=== PATIENT | male | born 2000 | race Two or more races ===

== ENCOUNTER 2021-11-03 17:32 | Emergency (ER) | payer MEDICAID, OTHER ==
[~2021-11-03] VITALS: Ht 175.3 cm; Wt 95.3 kg
[~2021-11-03 17:32] MED LIST: SODIUM CHLORIDE 0.9% 1,000 ML IV ONE
[2021-11-03] MEDS ORDERED: ONDANSETRON HCL 4 MG/2 ML VIAL ONE (17:36)
[2021-11-03] MEDS ORDERED: NALOXONE HCL 1MG/ML 2ML SYRINGE IV ONE (18:00)
[2021-11-03] MEDS ORDERED: ONDANSETRON HCL 4 MG/2 ML VIAL IV ONE (18:00)
[2021-11-03 18:12] LABS: Basophils # (auto) 0.3 10 ^3/uL (0-0.2); Basophils % (auto) 2.4 % (0.0-2.0); Eosinophils # (auto) 0.1 10 ^3/uL (0-0.8); Eosinophils % (auto) 1.3 % (0.0-7.0); Hematocrit 42.2 % (41.0-53.0); Hemoglobin 14.6 g/dL (13.5-17.5); Lymphocytes # (auto) 5.4 10 ^3/uL (0.4-5.4); Lymphocytes % (auto) 50.3 % (10.0-50.0); Mean Corpuscular Hgb Conc. 34.6 g/dL (32.0-36.0); Mean Corpuscular Volume 86.8 fL (80.0-100.0); Monocytes # (auto) 0.8 10 ^3/uL (0-1.3); Monocytes % (auto) 7.8 % (0.0-12.0); Neutrophils # (auto) 4.1 10 ^3/uL (1.6-8.6); Neutrophils % (auto) 38.2 % (37.0-80.0); Nucleated Red Blood Cells % 0.2 %; Red Blood Cells 4.86 10^6/uL (4.5-5.90); Red Cell Distribution Width 12.9 % (11.8-14.3); White Blood Cell 10.6 10^3/uL (4.4-10.8)
[2021-11-03 18:26] LABS: Albumin 3.8 g/dL (3.4-5.0); Calcium 8.1 mg/dL (8.5-10.1); Magnesium 2.7 mg/dL (1.6-2.6); Potassium 3.5 mmol/L (3.5-5.1)
[2021-11-03 18:30] LABS: BUN/Creatinine Ratio 6.7; Bilirubin, Total 0.6 mg/dL (0.2-1.0); Total Protein 7.3 g/dL (6.4-8.2)
[2021-11-03 19:29] LABS: Alcohol, Urine < 3.0 mg/dL (0-10); Amphetamine Screen, Urine NEGATIVE (NEGATIVE); Barbiturate Scree,Urine NEGATIVE (NEGATIVE); Benzodiazephine Screen, Urine POSITIVE (NEGATIVE); Cannabinoid Screen, Urine POSITIVE (NEGATIVE); Cocaine Screen, Urine POSITIVE (NEGATIVE); Opiate Scree,Urine NEGATIVE (NEGATIVE); Phencyclidine Screen, Urine NEGATIVE (NEGATIVE)
[2021-11-03 19:35] VITALS: BP 102/66
== END 2021-11-03 20:21 | disposition left against medical advice (07) ==
LOC: ER 17:32
DX: R41.82 Altered mental status, unspecified (principal); F19.10 Other psychoactive substance abuse, uncomplicated
CPT/HCPCS: 36415; 71045; 80053; 80307; 80320; 83735; 85025; 96374; 96375; 99284; J2405

== ENCOUNTER 2024-09-26 11:13 | Inpatient (IN) | payer MEDICAID ==
[~2024-09-26] VITALS: Ht 165.1 cm; Wt 75.5 kg
[2024-09-26] MEDS: SODIUM CHLORIDE 0.9% 1,000 ML IVB ONE (11:45)
--- NOTE | 2024-09-26 11:48 | ED.PDOC ---
GI ASSESSMENT HPI Comments 23 year old male presents to the ED with chief complaint of abdominal pain. Patient reports that he has been experiencing RLQ sharp, 6/10 abdominal pain with associated radiation to the back and right groin along with nausea and vomiting for the past 2 days. Patient relays that movement worsens his pain. Patient denies any fever, chills, hematemesis, melena, or diarrhea. Chief Complaint: Abdominal Pain Time Seen by MD: 11:46 Primary Care Provider: NONE Reviewed Notes: Nurses Notes, Medications, Allergies Allergies: Coded Allergies: NO KNOWN ALLERGIES (Unverified , 11/03/21) Information Source: Patient Mode of Arrival: Ambulatory Timing: Days Duration: Since onset Prehospital treatment: None Quality: Sharp Vomitus: Watery Stool: Normal Severity: Moderate Recent: None Recent Hx of: None Pain Location: RLQ Modifying Factors: Nothing Associated sign and symptoms: Nausea, Vomiting, Abdominal Pain Past Medical History PAST MEDICAL HISTORY: Denies Surgical History: Denies all surgeries Family History Family History: Reviewed,noncontributory to illness Social History Smoker: Cigarettes Alcohol: Occasionally Drugs: Marijuana Lives In: Home Constitutional: denies: chills, diaphoresis, fatigue, fever, malaise, sweats, weakness, others EENTM: denies: blurred vision, double vision, ear bleeding, ear discharge, ear drainage, ear pain, ear ringing, eye pain, eye redness, hearing loss, mouth pain, mouth swelling, nasal discharge, nose bleeding, nose congestion, nose pain, photophobia, tearing, throat pain, throat swelling, voice changes, others Respiratory: denies: cough, hemoptysis, orthopnea, SOB at rest, shortness of breath, SOB with excertion, stridor, wheezing, others Cardiovascular: denies: chest pain, dizzy spells, diaphoresis, Dyspnea on exertion, edema, irregular heart beat, left arm pain, lightheadedness, palpitations, PND, syncope, others Gastrointestinal: reports: abdominal pain, nausea, vomiting; denies: abdomen distended, blood streaked bowels, constipated, diarrhea, dysphagia, difficulty swallowing, hematemesis, melena, poor appetite, poor fluid intake, rectal bleeding, rectal pain, others Genitourinary: reports: testicle pain; denies: burning, dysuria, flank pain, frequency, hematuria, incontinence, penile discharge, penile sore, pain, testicle swelling, urgency, others Neurological: denies: dizziness, fainting, headache, left sided numbness, left sided weakness, numbness, paresthesia, pre-existing deficit, right sided numbness, right sided weakness, seizure, speech problems, tingling, tremors, weakness, others Musculoskeletal: reports: back pain; denies: gout, joint pain, joint swelling, muscle pain, muscle stiffness, neck pain, others Integumetry: denies: bruises, change in color, change in hair/nails, dryness, laceration, lesions, lumps, rash, wounds, others Allergic/Immunocompromised: denies: Difficulty Healing, Frequent Infections, Hives, Itching, others Hematologic/Lymphatic: denies: anemia, blood clots, easy bleeding, easy bruising, swollen glands, others Endocrine: denies: excessive hunger, excessive sweating, excessive thirst, excessive urination, flushing, intolerance to cold, intolerance to heat, unexplained weight gain, unexplained weight loss, others Psychiatric: denies: anxiety, bipolar disorder, depression, hopeless, panic disorder, schizophrenia, sleepless, suicidal, others All Other Systems: Reviewed and Negative Physical Exam General Appearance: Moderate Distress HEENT: Normal ENT Inspection, Pharynx Normal, TMs Normal Neck: Full Range of Motion, Non-Tender, Normal, Normal Inspection Respiratory: Chest Non-Tender, Lungs Clear, No Accessory Muscle Use, No Respiratory Distress, Normal Breath Sounds Cardiovascular: No Edema, No JVD, No Murmur, No Gallop, Normal Peripheral Pulses, Regular Rate/Rhythm Breast Exam: Deferred Gastrointestinal: No Organomegaly, No Pulsatile Mass, Normal Bowel Sounds, RLQ, Soft, Tenderness Genitalia: Deferred Pelvic: Deferred Rectal: Deferred Extremities: No calf tenderness, Normal capillary refill, Normal inspection, Normal range of motion, Non-tender, No pedal edema Musculoskeletal : Apperance: Normal Neurologic: Alert, automatic pilot mechanic II-XII nml as Tested, No Motor Deficits, Normal Affect, Normal Mood, No Sensory Deficits Cerebellar Function: Normal Reflexes: Normal Skin: Dry, Normal Color, Warm Lymphatic: No Adenopathy Was a procedure done? Was a procedure done?: No GI differential Dx Differential Diagnosis: Appendicitis, Gastritis/PUD, Gastroenteritis, Pancreatitis, UTI, Electrolyte Imbalance, Food Poisoning X-Ray, Labs, Meds, VS Vital Signs Date Time Temp Pulse Resp B/P (MAP) Pulse Ox O2 Delivery O2 Flow Rate FiO2 09/26/24 13:12 106 14 98 Room Air* 0 21 09/26/24 13:11 98.0 106 14 137/60 (85) 98 98.0 09/26/24 13:11 106 14 137/60 09/26/24 11:42 98.3 105 16 129/63 (85) 96 Lab Test 09/26/24 13:38 09/26/24 11:57 09/26/24 11:39 Range/Units Prothrombin Time Pending Prothrombin Time INR Pending Activated Partial Thromboplast Time Pending White Blood Count 13.3 H 4.4-10.8 10^3/uL Red Blood Count 4.64 4.5-5.90 10^6/uL Hemoglobin 14.8 13.5-17.5 g/dL Hematocrit 42.2 41.0-53.0 % Mean Corpuscular Volume 90.9 80.0-100.0 fL Mean Corpuscular Hemoglobin 32.0 28.0-32.0 pg Mean Corpuscular Hemoglobin Concent 35.1 32.0-36.0 g/dL Red Cell Distribution Width 15.0 H 11.8-14.3 % Platelet Count 312 140-450 10^3/uL Mean Platelet Volume 8.6 6.9-10.8 fL Neutrophils (%) (Auto) 75.9 37.0-80.0 % Lymphocytes (%) (Auto) 15.7 10.0-50.0 % Monocytes (%) (Auto) 8.1 0.0-12.0 % Eosinophils (%) (Auto) 0.2 0.0-7.0 % Basophils (%) (Auto) 0.1 0.0-2.0 % Neutrophils # (Auto) 10.1 H 1.6-8.6 10 ^3/uL Lymphocytes # (Auto) 2.1 0.4-5.4 10 ^3/uL Monocytes # (Auto) 1.1 0-1.3 10 ^3/uL Eosinophils # (Auto) 0 0-0.8 10 ^3/uL Basophils # (Auto) 0 0-0.2 10 ^3/uL Nucleated Red Blood Cells 0.0 % Sodium Level 130 L 136-145 mmol/L Potassium Level 4.0 3.5-5.1 mmol/L Chloride Level 96 L 98-107 mmol/L Carbon Dioxide Level 23 20-31 mmol/L Anion Gap 11 5-15 Blood Urea Nitrogen 15 9-23 mg/dL Creatinine 0.88 0.700-1.30 mg/dL Glomerular Filtration Rate Calc 125 >90 mL/min BUN/Creatinine Ratio 17.0 10.0-20.0 Serum Glucose 111 H 74-106 mg/dL Calcium Level 10.5 H 8.7-10.4 mg/dL Total Bilirubin 2.1 H 0.2-1.0 mg/dL Aspartate Amino Transferase (AST) 28 13-40 U/L Alanine Aminotransferase (ALT) 21 7-40 U/L Alkaline Phosphatase 86 46-116 U/L Total Protein 8.3 H 5.7-8.2 g/dL Albumin 5.3 H 3.2-4.8 g/dL Urine Color [place] H Yellow Urine Clarity Clear Clear Urine pH 6.0 5.0-9.0 Urine Specific [place] 1.045 H 1.001-1.035 Urine Protein 1+ H Negative Urine Ketones 2+ H Negative Urine Blood 1+ H Negative /uL Urine Nitrite Negative Negative Urine Bilirubin 1+ Negative Urine Urobilinogen 8 H Negative mg/dL Urine Leukocyte Esterase Negative Negative /uL Urine RBC 2 0 - 3 /hpf Urine Microscopic WBC 5 H 0-3 /HPF Urine Squamous Epithelial Cells Few <5 /hpf Urine Bacteria None seen None Seen /hpf Urine Mucus Few None Seen Urine Glucose Normal Normal mg/dL Current Medications Medications (Trade) Dose Ordered Sig/Todd Route Start Time Stop Time Status Last Admin Ondansetron HCl (Zofran) 4 mg ONCE ONCE IV 09/26/24 11:45 09/26/24 11:46 DC 09/26/24 13:08 Sodium Chloride 1,000 ml @ 1,000 mls/hr Q1H ONCE IVB 09/26/24 11:45 09/26/24 12:44 DC 09/26/24 11:45 Morphine Sulfate 4 mg ONCE ONCE IV 09/26/24 11:45 09/26/24 11:46 DC 09/26/24 13:11 Piperacillin Sod/ Tazobactam Sod 100 ml @ 100 mls/hr ONCE ONCE IV 09/26/24 13:15 09/26/24 14:14 09/26/24 13:24 CT Abd/Pel indicates: 1. Acute appendicitis. No evidence of rupture. No abscess formation. Surgical evaluation is recommended. Critical Result: Acute appendicitis Findings discussed with AZEB ELLSWORTH at 09/26/2024 12:29 PM, and acknowledged receipt and understanding of the findings. IV Hep-Lock was established The patient was given a 1 L bolus of normal saline Because of the appendicitis, the patient was started on Zosyn IV piggyback. The patient was given morphine 4 mg IV push for the pain The patient was given Zofran 4 mg IV push for the nausea CBC is elevated with a white blood cell count of 13.3 We did speak with Dr. Mccabe who is the surgeon on-call. He will be consulting on the patient. The patient was to remain NPO and has been placed on the surgical list Images Reviewed?: Images reviewed and evaluated by me Time of 1ST Reevaluation: 13:51 Reevaluation 1ST: Unchanged Patient Education/Counseling: Diagnosis, Treatment, Prognosis Family Education/Counseling: No Family Present Additional Information - I reviewed the following notes from patient's past medical encounters: 11/03/21 for drug overdose - The following tests were ordered, and results were reviewed by me: (Labs, X- Ray, EKG): UA, CBC, CMP, CT Abd/Pel - Additional information was gathered from interviewing the following independent Historian: (Family, Other Providers, EMT): None - I reviewed and agreed with the following test results read by other provider: (X-ray, CT, US): CT Abd/Pel - I discussed treatments and results with medical personnel. Departure 1 Departure Time of Disposition: 13:51 Impression: Primary Impression: Intractable abdominal pain Additional Impression: Acute appendicitis Qualified Codes: K35.80 - Unspecified acute appendicitis Disposition: ADMITTED INPATIENT Admit to: Med Surg Condition: Fair Critical Care Note Critical Care Time?: No Stability Stability form required: Yes Unstable for transfer: ED Physician Assesment (Clinical assesment) Heart Score Heart Score: Heart Score Response (Comments) Value History N/A 0 EKG N/A 0 Age N/A 0 Risk Factors N/A 0 Troponin N/A 0 Total 0 I personally scribed for AZEB ELLSWORTH MD ([email or web address]) on 09/26/24 at 11:48. Electronically submitted by Enio Emerson ([email or web address]). I personally scribed for AZEB ELLSWORTH MD ([email or web address]) on 09/26/24 at 12:48. Electronically submitted by Enio Emerson ([email or web address]). I personally scribed for AZEB ELLSWORTH MD ([email or web address]) on 09/26/24 at 12:48. Electronically submitted by Enio Emerson ([email or web address]). AZEB ELLSWORTH MD Sep 26, 2024 11:48
[2024-09-26 12:25] LABS: Urine Bacteria None Seen /hpf (None Seen)
[2024-09-26 12:34] LABS: Alanine Aminotransferase 21 U/L (7-40); Alkaline Phosphatase 86 U/L (46-116); Anion Gap 11 (5-15); Aspartate Aminotransferase 28 U/L (13-40); Blood Urea Nitrogen 15 mg/dL (9-23); Carbon Dioxide 23 mmol/L (20-31)
--- NOTE | 2024-09-26 12:35 | DVH ---
Exam: CT CT AB PEL WO CON-NO ORAL OR IV History: lower abd pain Comparison Study: None Technique: Multidetector spiral CT of the abdomen and pelvis was performed from lung bases to pubic symphysis. Imaging was performed without IV contrast. Axial, coronal and sagittal multiplanar reform ats were obtained from the axial data set by the technologist. Radiation dose : Abdomen/Pelvis: CTDIvol 5 mGy, DLP 311.74 mGy*cm. Findings: Evaluation of solid organs is limited due to lack of intravenous contrast use. Lung Bases: No acute or significant lung base finding. Normal heart size. No pleural or pericardial effusion. Liver: The liver is normal in size. No focal lesions. Gallbladder and biliary Tree: Unremarkable Spleen: Unremarkable Pancreas: The pancreas is grossly normal in appearance. Adrenal Glands: Unremarkable Kidneys: Kidneys are grossly normal without calculi or hydronephrosis. Bladder: Grossly unremarkable for degree of distention. Bowel: The stomach is grossly normal in appearance. Small bowel and colon are normal in caliber and d istribution. Appendix is dilated. There is significant stranding in the right lower quadrant. No loc ulated abscess. Ascites: Absent Lymphadenopathy: No mesenteric, retroperitoneal or periportal lymphadenopathy. Abdominal wall and Mesentery: Unremarkable. Vasculature: The visualized abdominal aorta is normal in size and caliber. Evaluation of abdominal a nd pelvic vessels is limited due to lack of intravenous contrast. Pelvic Organs: Unremarkable Musculoskeletal: No aggressive focal bony lesions, acute fractures or dislocation. IMPRESSION: 1. Acute appendicitis. No evidence of rupture. No abscess formation. Surgical evaluation is recommend ed. Critical Result: Acute appendicitis Findings discussed with AZEB ELLSWORTH at 09/26/2024 12:29 PM, and acknowledged receipt and understand ing of the findings. .. Radiation optimization: All CT scans at this facility use at least one of these dose optimization erendira hniques: Automated exposure control mA and/or kV adjustment per patient size (includes targeted exams where dose is matched to clinical indication) or iterative reconstruction. HS:Y
[2024-09-26 12:37] LABS: Albumin 5.3 g/dL (3.2-4.8); Bilirubin, Total 2.1 mg/dL (0.2-1.0); Calcium 10.5 mg/dL (8.7-10.4); Chloride 96 mmol/L (98-107); Glucose 111 mg/dL (74-106); Sodium 130 mmol/L (136-145); Total Protein 8.3 g/dL (5.7-8.2)
[2024-09-26 12:50] LABS: Basophils # (auto) 0 10 ^3/uL (0-0.2); Basophils % (auto) 0.1 % (0.0-2.0); Eosinophils # (auto) 0 10 ^3/uL (0-0.8); Eosinophils % (auto) 0.2 % (0.0-7.0); Hematocrit 42.2 % (41.0-53.0); Hemoglobin 14.8 g/dL (13.5-17.5); Lymphocytes # (auto) 2.1 10 ^3/uL (0.4-5.4); Lymphocytes % (auto) 15.7 % (10.0-50.0); Mean Corpuscular Hgb Conc. 35.1 g/dL (32.0-36.0); Mean Corpuscular Volume 90.9 fL (80.0-100.0); Monocytes # (auto) 1.1 10 ^3/uL (0-1.3); Monocytes % (auto) 8.1 % (0.0-12.0); Neutrophils # (auto) 10.1 10 ^3/uL (1.6-8.6); Neutrophils % (auto) 75.9 % (37.0-80.0); Platelet Count (auto) 312 10^3/uL (140-450); Red Blood Cells 4.64 10^6/uL (4.5-5.90); White Blood Cell 13.3 10^3/uL (4.4-10.8)
[2024-09-26] MEDS: ONDANSETRON HCL 4 MG/2 ML VIAL IV ONE (13:08)
[2024-09-26] MEDS: MORPHINE SULFATE 4 MG/ML SYR/VIAL IV ONE (13:11)
[2024-09-26 13:12] VITALS: PULSE 106; RESP 14; O2SAT 98
[2024-09-26 13:18] LABS: Urine Blood 1+ /uL (Negative); Urine Clarity Clear (Clear); Urine Color Orange (Yellow); Urine Mucus FEW (None Seen); Urine Protein, UAD 1+ (Negative); Urine Specific Gravity 1.045 (1.001-1.035); Urine Squamous Epithelial Cell FEW /hpf (<5); Urine Urobilinogen 8 mg/dL (Negative); Urine WBC 5 /HPF (0-3)
[2024-09-26] MEDS: PIPERACILLIN-TAZOB 3.375GM 100 ML IV ONE (13:24)
[2024-09-26 14:32] LABS: Partial Thromboplastin Time 30.9 SEC (24.5-34.5); Prothrombin Time 10.6 sec (9.3-11.8)
[2024-09-26] MEDS: HYDROcodone-ACET 10/325MG TAB PO ONE (17:11)
--- NOTE | 2024-09-26 17:43 | DVHINCON2 ---
Date of service: Sep 26, 2024 Allergies: Coded Allergies: NO KNOWN ALLERGIES (Unverified , 11/03/21) Vital Signs Vital Signs Date Time Temp Pulse Resp B/P (MAP) Pulse Ox O2 Delivery O2 Flow Rate FiO2 09/26/24 14:42 82 12 96/61 09/26/24 13:12 98 Room Air* 0 21 09/26/24 13:11 98.0 98.0 Labs/Diagnostic Data Labs Test 09/26/24 13:38 09/26/24 11:57 09/26/24 11:39 Range/Units Prothrombin Time 10.6 9.3-11.8 sec Prothrombin Time INR 1.00 0.9-1.15 Activated Partial Thromboplast Time 30.9 24.5-34.5 SEC White Blood Count 13.3 H 4.4-10.8 10^3/uL Red Blood Count 4.64 4.5-5.90 10^6/uL Hemoglobin 14.8 13.5-17.5 g/dL Hematocrit 42.2 41.0-53.0 % Mean Corpuscular Volume 90.9 80.0-100.0 fL Mean Corpuscular Hemoglobin 32.0 28.0-32.0 pg Mean Corpuscular Hemoglobin Concent 35.1 32.0-36.0 g/dL Red Cell Distribution Width 15.0 H 11.8-14.3 % Platelet Count 312 140-450 10^3/uL Mean Platelet Volume 8.6 6.9-10.8 fL Neutrophils (%) (Auto) 75.9 37.0-80.0 % Lymphocytes (%) (Auto) 15.7 10.0-50.0 % Monocytes (%) (Auto) 8.1 0.0-12.0 % Eosinophils (%) (Auto) 0.2 0.0-7.0 % Basophils (%) (Auto) 0.1 0.0-2.0 % Neutrophils # (Auto) 10.1 H 1.6-8.6 10 ^3/uL Lymphocytes # (Auto) 2.1 0.4-5.4 10 ^3/uL Monocytes # (Auto) 1.1 0-1.3 10 ^3/uL Eosinophils # (Auto) 0 0-0.8 10 ^3/uL Basophils # (Auto) 0 0-0.2 10 ^3/uL Nucleated Red Blood Cells 0.0 % Sodium Level 130 L 136-145 mmol/L Potassium Level 4.0 3.5-5.1 mmol/L Chloride Level 96 L 98-107 mmol/L Carbon Dioxide Level 23 20-31 mmol/L Anion Gap 11 5-15 Blood Urea Nitrogen 15 9-23 mg/dL Creatinine 0.88 0.700-1.30 mg/dL Glomerular Filtration Rate Calc 125 >90 mL/min BUN/Creatinine Ratio 17.0 10.0-20.0 Serum Glucose 111 H 74-106 mg/dL Calcium Level 10.5 H 8.7-10.4 mg/dL Total Bilirubin 2.1 H 0.2-1.0 mg/dL Aspartate Amino Transferase (AST) 28 13-40 U/L Alanine Aminotransferase (ALT) 21 7-40 U/L Alkaline Phosphatase 86 46-116 U/L Total Protein 8.3 H 5.7-8.2 g/dL Albumin 5.3 H 3.2-4.8 g/dL Urine Color [place] H Yellow Urine Clarity Clear Clear Urine pH 6.0 5.0-9.0 Urine Specific [place] 1.045 H 1.001-1.035 Urine Protein 1+ H Negative Urine Ketones 2+ H Negative Urine Blood 1+ H Negative /uL Urine Nitrite Negative Negative Urine Bilirubin 1+ Negative Urine Urobilinogen 8 H Negative mg/dL Urine Leukocyte Esterase Negative Negative /uL Urine RBC 2 0 - 3 /hpf Urine Microscopic WBC 5 H 0-3 /HPF Urine Squamous Epithelial Cells Few <5 /hpf Urine Bacteria None seen None Seen /hpf Urine Mucus Few None Seen Urine Glucose Normal Normal mg/dL Assessment [id number] AC APPENDICITIS LAP/OPEN APPENDECTOMY Plan discussed with: Patient LAUREN STEINER MD Sep 26, 2024 17:43
[2024-09-26] MEDS ORDERED: ROCURONIUM 10MG/ML 10ML VIAL IV ONE (19:13)
[2024-09-26] MEDS ORDERED: KETOROLAC TROMETH 30 MG/ML 1ML VIAL ONE (19:13)
[2024-09-26] MEDS ORDERED: LIDOCAINE 1% INJ PF 5ML AMP ONE (19:13)
[2024-09-26] MEDS ORDERED: PROPOFOL 10 MG/ML 20 ML IV ONE (19:13)
[2024-09-26] MEDS ORDERED: HYDROmorphone HCL 2 MG/ML VL/or syr ONE (19:14)
[2024-09-26] MEDS ORDERED: METOCLOPRAMIDE HCL 5MG/ml INJ 2ml VIAL ONE (19:14)
[2024-09-26] MEDS ORDERED: SUGAMMADEX 200mg/2ml Vial (100MG/ML) IV ONE (19:14)
[2024-09-26] MEDS ORDERED: ONDANSETRON HCL 4 MG/2 ML VIAL ONE (19:14)
[2024-09-26] MEDS: BUPIVACAINE 0.25% INJ 50ML VIAL ONE (19:17)
[2024-09-26] MEDS ORDERED: MORPHINE SULFATE INJ 2 MG/ml SYRG IV PRN (19:30)
[2024-09-26] MEDS ORDERED: NITROGLYCERIN 0.4 MG SL TAB SL PRN (19:30)
--- NOTE | 2024-09-26 20:02 | DVHOP2 ---
Operative Report [id number] AC APPENDICITIS DENSE ADHESIONS INTRAABD ABSCESS DRAINAGE OF INTRAABD ABSCESS LAP ESPINOZA LAP APPENDECTOMY EBL 25 CC ON DRAIN NO COMPLICATIONS LAUREN STEINER MD Sep 26, 2024 20:02
[2024-09-26 20:04] VITALS: PULSE 78; RESP 16; O2SAT 100
[2024-09-26 20:15] VITALS: PULSE 87; RESP 14; O2SAT 98
[2024-09-26] MEDS ORDERED: ONDANSETRON HCL 4 MG/2 ML VIAL IV ONE (20:15)
[2024-09-26] MEDS: MORPHINE SULFATE 4 MG/ML SYR/VIAL IV PRN (20:23)
[2024-09-26] MEDS: HYDROmorphone HCL 2 MG/ML VL/or syr IV PRN (21:29)
[2024-09-26 21:49] VITALS: PULSE 84; RESP 18; O2SAT 95
[2024-09-26] MEDS ORDERED: ONDANSETRON ODT 4 MG TAB PO ONE (22:15)
--- NOTE | 2024-09-26 22:56 | DVHHPRES ---
History of Present Illness Resident Creating Document: WEI CASTRO RESDIENT History of Present Illness This is a 23-year-old male with past history of anxiety came to the hospital due to abdominal pain since 2 days. He had a sharp constant pain localized at left lower quadrant radiating to the right groin and the, 8/10 which was worsening with mobility and changing position. Also reports nausea, vomiting, fever and decreased oral intake. He denies cough, shortness with, or any recent bladder habit changes. CT scan finding was consistent with appendicitis, which subsequently underwent laparoscopy appendectomy, and drained the intra-abdominal abscess. PMHx: Anxiety PSHx: Insignificant Social history: Homeless, smokes weeds, denies any other drug Home medication: Take no meds Allergic history: No known allergies Patient was seen and examined at the bedside after surgery, complaining of abdominal pain 6/10, no nausea and vomiting. Surgical site was clean, with no redness/induration/discharge or any other sign of infection. Draining tube was inside, with serosanguineous drainage. Review of Systems Review of Systems General: Reports fever and generalized body pain HEENT: No headaches, visiual changes, hearing loss, tinnitus, nasal congestion and discharge, and sore throat. Cardiovascular: Denies chest pain, palpitations, dyspnea on exertion, orthopnea, or claudication. Respiratory: No cough, and wheezing. Gastrointestinal: Reports abdominal pain, nausea and vomiting Genitourinary: No dysuria, hematuria, discharge, frequency, urgency, nocturia, incontinence, and urinary retention. Endocrine: No heat or cold intolerance, polydipsia, polyuria, and polyphagia. Neurological: No dizziness, extremity weakness and numbness, tremors, gait dist urbance, seizures, and memory impairment. Psychiatric: Denies depression, anxiety,or insomnia. Musculoskeletal: Denies neck pain, stiffness and swelling, back pain, muscle weakness, joint pain, stiffness, swelling, or limited range of motion. Skin: No rashes, itching, skin lesion, changes in hair, nail, skin texture and breast. Hematologic/Lymphatic: Denies easy bruising, bleeding tendencies, or lymph node enlargement. Allergies: Coded Allergies: NO KNOWN ALLERGIES (Unverified , 11/03/21) Medications Current Medications Medications Dose Ordered Sig/Todd Route Start Time Stop Time Status Last Admin Dose Admin Nitroglycerin 0.4 mg Q5MINP PRN SL 09/26/24 19:30 Morphine Sulfate 2 mg Q30M PRN IV 09/26/24 19:30 Exam Vital Signs Vital Signs Date Time Temp Pulse Resp B/P (MAP) Pulse Ox O2 Delivery O2 Flow Rate FiO2 09/26/24 21:20 82 16 102/51 (68) 98 09/26/24 20:15 Room Air 09/26/24 20:04 98.1 98.1 09/26/24 20:04 10.0 09/26/24 20:04 100 Exam General Appearance: Alert, Oriented X3, Cooperative, No acute distress HEENT: Atraumatic, PERRLA, EOMI, Mucous membrane moist/pink Respiratory: Clear to auscultation, Normal air movement Cardiovascular: Regular rate, Normal S1, Normal S2, No murmurs, no chest wall tenderness Abdominal: Surgical site was clean, with no redness/induration/discharge or any other sign of infection. Draining tube was inside, with serosanguineous drainage. Mild tenderness on palpation. Drainage of intra-abdominal abscess with laparoscopic lysis of adhesions and laparoscopic appendectomy. Extremities: No clubbing, No cyanosis, No edema, Normal pulses, No tenderness/swelling Skin: No rashes, No breakdown, No significant lesion Neuro: Normal gait, Normal speech, Strength at 5/5 X4 ext, Normal tone, Sensation intact, Cranial nerves 3-12 NL, Reflexes 2+ Psych/Mental Status: Mental status NL, Mood NL Labs/Xrays Labs Test 09/26/24 13:38 09/26/24 11:57 09/26/24 11:39 Range/Units Prothrombin Time 10.6 9.3-11.8 sec Prothrombin Time INR 1.00 0.9-1.15 Activated Partial Thromboplast Time 30.9 24.5-34.5 SEC White Blood Count 13.3 H 4.4-10.8 10^3/uL Red Blood Count 4.64 4.5-5.90 10^6/uL Hemoglobin 14.8 13.5-17.5 g/dL Hematocrit 42.2 41.0-53.0 % Mean Corpuscular Volume 90.9 80.0-100.0 fL Mean Corpuscular Hemoglobin 32.0 28.0-32.0 pg Mean Corpuscular Hemoglobin Concent 35.1 32.0-36.0 g/dL Red Cell Distribution Width 15.0 H 11.8-14.3 % Platelet Count 312 140-450 10^3/uL Mean Platelet Volume 8.6 6.9-10.8 fL Neutrophils (%) (Auto) 75.9 37.0-80.0 % Lymphocytes (%) (Auto) 15.7 10.0-50.0 % Monocytes (%) (Auto) 8.1 0.0-12.0 % Eosinophils (%) (Auto) 0.2 0.0-7.0 % Basophils (%) (Auto) 0.1 0.0-2.0 % Neutrophils # (Auto) 10.1 H 1.6-8.6 10 ^3/uL Lymphocytes # (Auto) 2.1 0.4-5.4 10 ^3/uL Monocytes # (Auto) 1.1 0-1.3 10 ^3/uL Eosinophils # (Auto) 0 0-0.8 10 ^3/uL Basophils # (Auto) 0 0-0.2 10 ^3/uL Nucleated Red Blood Cells 0.0 % Sodium Level 130 L 136-145 mmol/L Potassium Level 4.0 3.5-5.1 mmol/L Chloride Level 96 L 98-107 mmol/L Carbon Dioxide Level 23 20-31 mmol/L Anion Gap 11 5-15 Blood Urea Nitrogen 15 9-23 mg/dL Creatinine 0.88 0.700-1.30 mg/dL Glomerular Filtration Rate Calc 125 >90 mL/min BUN/Creatinine Ratio 17.0 10.0-20.0 Serum Glucose 111 H 74-106 mg/dL Calcium Level 10.5 H 8.7-10.4 mg/dL Total Bilirubin 2.1 H 0.2-1.0 mg/dL Aspartate Amino Transferase (AST) 28 13-40 U/L Alanine Aminotransferase (ALT) 21 7-40 U/L Alkaline Phosphatase 86 46-116 U/L Total Protein 8.3 H 5.7-8.2 g/dL Albumin 5.3 H 3.2-4.8 g/dL Urine Color [place] H Yellow Urine Clarity Clear Clear Urine pH 6.0 5.0-9.0 Urine Specific [place] 1.045 H 1.001-1.035 Urine Protein 1+ H Negative Urine Ketones 2+ H Negative Urine Blood 1+ H Negative /uL Urine Nitrite Negative Negative Urine Bilirubin 1+ Negative Urine Urobilinogen 8 H Negative mg/dL Urine Leukocyte Esterase Negative Negative /uL Urine RBC 2 0 - 3 /hpf Urine Microscopic WBC 5 H 0-3 /HPF Urine Squamous Epithelial Cells Few <5 /hpf Urine Bacteria None seen None Seen /hpf Urine Mucus Few None Seen Urine Glucose Normal Normal mg/dL Assessment/Plan Assessment/Plan Acute appendicitis Intra-abdominal abscess CT scan finding consistent with a acute appendicitis Surgery consulted, drained intra-abdominal abscess with laparoscopic lysis of adhesions and laparoscopic appendectomy Postop, surgical site was clean, with no redness/induration/discharge or any other sign of infection. Draining tube was inside, with serosanguineous drainage Ceftriaxone and metronidazole IV fluid History of anxiety Homelessness, director of social media marketing consult DIET: NPO DISPOSITION: Med/surge Patient's status and paln discussed with patient Case discussed with Dr. Marroquin. Plan discussed with: Patient, Other (RN) My Orders Orders - WEI CASTRO RESDIALEJO Procedure Category Date Status Time Communication Order ORDERS 09/26/24 Transmitted 22:32 Date of Service: Sep 27, 2024 Billing Provider: JETT MARROQUIN MD Common Visit Codes: 11333-SEIUIOE INP/OBS CARE (HIGH) WEI CASTRO RESDIENT Sep 26, 2024 22:56 JETT MARROQUIN MD Sep 28, 2024 15:44
[2024-09-27] VITALS (8 sets, daily range): BP systolic 98–129; BP diastolic 46–65; PULSE 86–98; RESP 12–18; TEMP 98–99.7; O2SAT 92–96
--- NOTE | 2024-09-27 00:19 | DVHOP ---
DATE OF SURGERY: 09/26/2024 PREOPERATIVE DIAGNOSIS: Acute appendicitis, was found to have dense adhesions with intra-abdominal abscess. POSTOPERATIVE DIAGNOSIS: Acute appendicitis, was found to have dense adhesions with intra-abdominal abscess. PROCEDURES: Drainage of intra-abdominal abscess with laparoscopic lysis of adhesions and laparoscopic appendectomy. SURGEON: Perfecto Mccabe MD HEATING TECHNICIAN: None. ANESTHESIA: General. ESTIMATED BLOOD LOSS: Close to 25 mL. DRAINS: One drain was used. COMPLICATIONS: No complications were encountered. DESCRIPTION OF PROCEDURE: The patient was prepped and draped in the usual sterile fashion in the supine position and a supraumbilical incision was applied, was taken down to the fascia. The Veress needle was introduced and CO2 insufflation was started to pressure of 15 mmHg. The needle was withdrawn, replaced by the 12-mm trocar and a telescope introduced. The appendix was found to be acutely inflamed and adherent to the omental tissue and could not be easily identified initially and then two 5-mm ports were applied more inferiorly, one above the symphysis, the 3rd midway between the upper two and the patient was placed in Trendelenburg and right upper lateral position. The camera moved to the lowermost 5-mm port, the upper 2 ports were used for surgery and with meticulous dissection, the omental tissue was taken off. The appendix was identified, was acutely inflamed, distended. Intra-abdominal abscess was also found, was drained out and the lysis of adhesions carried out laparoscopically. The base of the appendix was identified. The mesoappendix was clipped at the base, divided distal to that using Harmonic device. The base of the appendix was then transected using the Endo ALFONSO stapling device and the appendix released in this fashion was retrieved from the supraumbilical wound in the EndoCatch bag without any complication. Hemostasis was secured. Irrigation fluid was removed. The port sites were free from bleeding. A size #19 Chente drainage tube was placed to drain the right lower quadrant and the pelvis, bringing out from the lowermost 5-mm port. After that, one port had been withdrawn, securing the drain with a silk suture. After this, the CO2 was let out. The patient was placed back supine and the EndoClose suture used for the fascial closure of the supraumbilical wound. All the ports were withdrawn after all the CO2 been let out and the patient was placed back supine. The wounds were then brought together using 3-0 Monocryl suture in a subcuticular fashion. Surgical glue was applied. The patient tolerated the procedure well and was taken back to the recovery room in a stable condition. MD SHAREE Yancey/ANAMIKA/ELSY TID: [id number] RECEIPT: [id number] cc: Candido Calhoun MD
[2024-09-27] MEDS: ONDANSETRON HCL 4 MG/2 ML VIAL IM ONE (00:47)
[2024-09-27] MEDS: MORPHINE SULFATE INJ 2 MG/ml SYRG IM ONE (00:53)
[2024-09-27] MEDS: cefTRIAXone 1GM/50ML D5W 50 ML IV ONE (01:15)
[2024-09-27 01:46] LABS: Basophils # (auto) 0 10 ^3/uL (0-0.2); Basophils % (auto) 0.3 % (0.0-2.0); Eosinophils # (auto) 0.1 10 ^3/uL (0-0.8); Eosinophils % (auto) 0.8 % (0.0-7.0); Hematocrit 34.3 % (41.0-53.0); Hemoglobin 12.3 g/dL (13.5-17.5); Lymphocytes # (auto) 1.7 10 ^3/uL (0.4-5.4); Lymphocytes % (auto) 18.3 % (10.0-50.0); Mean Corpuscular Hemoglobin 32.9 pg (28.0-32.0); Mean Corpuscular Hgb Conc. 35.8 g/dL (32.0-36.0); Mean Corpuscular Volume 91.9 fL (80.0-100.0); Monocytes # (auto) 0.8 10 ^3/uL (0-1.3); Monocytes % (auto) 8.1 % (0.0-12.0); Neutrophils # (auto) 6.9 10 ^3/uL (1.6-8.6); Neutrophils % (auto) 72.5 % (37.0-80.0); Platelet Count (auto) 246 10^3/uL (140-450); Red Blood Cells 3.73 10^6/uL (4.5-5.90); Red Cell Distribution Width 15.2 % (11.8-14.3); White Blood Cell 9.6 10^3/uL (4.4-10.8)
[2024-09-27 02:03] LABS: Alanine Aminotransferase 16 U/L (7-40); Alkaline Phosphatase 62 U/L (46-116); Anion Gap 6 (5-15); Aspartate Aminotransferase 15 U/L (13-40); BUN/Creatinine Ratio 14.6 (10.0-20.0); Blood Urea Nitrogen 12 mg/dL (9-23); Calcium 9.4 mg/dL (8.7-10.4); Carbon Dioxide 28 mmol/L (20-31); Chloride 99 mmol/L (98-107); Glucose 95 mg/dL (74-106); Potassium 3.8 mmol/L (3.5-5.1)
[2024-09-27 02:04] LABS: Total Protein 6.3 g/dL (5.7-8.2)
[2024-09-27] MEDS: cefTRIAXone 1GM/50ML D5W 50 ML IV SCH (02:09)
[2024-09-27 02:10] LABS: Bilirubin, Total 1.5 mg/dL (0.2-1.0); Sodium 133 mmol/L (136-145)
[2024-09-27] MEDS: SODIUM CHLORIDE 0.9% 1,000 ML IV ONE (02:11)
[2024-09-27] MEDS: metroNIDAZOLE 500MG/100ML 100 ML IV ONE (02:14)
[2024-09-27] MEDS: ACETAMINOPHEN IV 1000 MG/100ML (10MG/ML) IV ONE (02:28)
--- NOTE | 2024-09-27 07:37 | DVHINCON2 ---
DATE OF CONSULTATION: 09/26/2024 HISTORY OF PRESENT ILLNESS: This patient is 23 years old, coming in with right lower quadrant pain for the past 3 days, got worse today. He came to the Emergency Room. I was asked to see him. No nausea, no vomiting, no constipation or diarrhea, no hematemesis or melena, and no bleeding per rectum. PAST MEDICAL HISTORY: ____ diabetes. Hypertension. PAST SURGICAL HISTORY: No significant surgical history. PHYSICAL EXAMINATION: VITAL SIGNS: On examination afebrile, stable signs. HEENT: No evidence of pallor, cyanosis, or jaundice. NECK: Supple, nontender with no thyromegaly or lymphadenopathy. CHEST AND LUNGS: Clear. HEART: Within normal limits. ABDOMEN: Soft, tender in the right lower quadrant. No evidence of rebound. EXTREMITIES: Unremarkable. NEUROLOGIC: Intact. CLINICAL IMPRESSION: Acute appendicitis, supported by radiology as well. PLAN: The plan will be to consider an emergent laparoscopic, possible open appendectomy. Benefits and risks were discussed, and a consent obtained. MD SHAREE Yancey/CECELIA/REFUGIO/BRIANNA TID: [id number] RECEIPT: [id number] cc: Candido Calhoun MD
[2024-09-27] MEDS: metroNIDAZOLE 500MG/100ML 100 ML IV SCH (09:52)
--- NOTE | 2024-09-27 13:06 | DVHPNRES ---
Progress Note Date Seen: Sep 27, 2024 Resident Creating Document: NATHAN MIX RESIDENT Medical Necessity Reason Pt with a Central, PICC or Fol: No Medical Necessity Reason APPENDICITIS, PERITONITIS, STATUS POST APPENDECTOMY Subjective Review of Systems This is a 23-year-old male with past history of anxiety presented to the ED due to abdominal pain that has been on going for 2 days. He described the pain as sharp, constant pain localized at left lower quadrant radiating to the right groin and rated 8/10 that was progressively with mobility and changing position. He also reports nausea, vomiting, fever and decreased oral intake. He denies cough, shortness with, or any recent bladder habit changes. Initial lab work revealed temperature of 98.3, pulse 105, respiratory 16 blood pressure of 129/63 initial blood work revealed WBC of 13.6--> 9.6 hemoglobin of 14.8 -->12.3. Chemistry shows sodium of 130. CT scan finding was consistent with appendicitis. Surgery was urgently consulted and patient taken into OR for drainage of intra- abdominal abscess with laparoscopic lysis of adhesions and laparoscopic appendectomy. Post operative diagnosis was Acute appendicitis, was dense adhesions with intra-abdominal abscess. Patient seen and examined this morning at the bedside. He was sleeping but easily aroused. He has no severe complaint abdominal pain and he complained of hunger wanted to eat. Incision site no blood or pus leaking. clean and dressed. We will start patient on clear liquid diet and progress gradually as per clinical state. General: Generalized body body pain HEENT: No headaches, visual changes, hearing loss, tinnitus, nasal congestion and discharge, and sore throat. Cardiovascular: Denies chest pain, palpitations, dyspnea on exertion, orthopnea, or claudication. Respiratory: No cough, and wheezing. Gastrointestinal: Reports abdominal pain, nausea and vomiting Genitourinary: No dysuria, hematuria, discharge, frequency, urgency, nocturia, incontinence, and urinary retention. Endocrine: No heat or cold intolerance, polydipsia, polyuria, and polyphagia. Neurological: No dizziness, extremity weakness and numbness, tremors, gait disturbance, seizures, and memory impairment. Psychiatric: Denies depression, anxiety,or insomnia. Musculoskeletal: Denies neck pain, stiffness and swelling, back pain, muscle weakness, joint pain, stiffness, swelling, or limited range of motion. Skin: No rashes, itching, skin lesion, changes in hair, nail, skin texture and breast. Hematologic/Lymphatic: Denies easy bruising, bleeding tendencies, or lymph node enlargement. Objective vital signs Vital Sign Date Time Temp Pulse Resp B/P (MAP) Pulse Ox O2 Delivery O2 Flow Rate FiO2 09/27/24 09:00 98.2 96 18 98/51 (67) 95 98.2 09/26/24 21:49 Room Air* 0 21 Total Intake and Output 09/26/24 09/26/24 09/27/24 15:00 23:00 07:00 Intake Total 1100 ml 50 ml Output Total 500 ml Balance 1100 ml -450 ml medications Current Medications Medications Dose Ordered Sig/Todd Route Start Time Stop Time Status Last Admin Dose Admin Ceftriaxone Sodium 50 ml @ 100 mls/hr Q24H IV 09/27/24 02:00 09/27/24 02:09 100 MLS/HR Metronidazole 100 ml @ 100 mls/hr Q8H IV 09/27/24 10:00 09/27/24 09:52 100 MLS/HR Morphine Sulfate 1 mg Q4HP PRN IV 09/27/24 01:15 Examination General Appearance: Alert, Oriented X3, Cooperative, No acute distress HEENT: Atraumatic, PERRLA, EOMI, Mucous membrane moist/pink Respiratory: Clear to auscultation, Normal air movement Cardiovascular: Regular rate, Normal S1, Normal S2, No murmurs, no chest wall tenderness Abdominal: No distention, no tenderness, bowel sounds present, no scars noted, drainage intact Extremities: No clubbing, No cyanosis, No edema, Normal pulses, No tenderness/swelling Skin: No rashes, No breakdown, No significant lesion, tattoos faces and arm Neuro: Normal gait, Normal speech, Strength at 5/5 X4 ext, Normal tone, Sensation intact, Cranial nerves 3-12 NL, Reflexes 2+ Psych/Mental Status: Mental status NL, Mood NL laboratory and microbiology Laboratory Tests 09/27/24 01:29 Test 09/27/24 01:29 Range/Units Serum Glucose 95 74-106 mg/dL Problem List/Assessment/Plan Problem List/Assessment/Plan Assessment Sepsis due to acute appendicitis peritonitis due intra-abdominal abscess. Acute appendicitis Acute blood loss anemia ( Hgb: 14.8--> 12.3) Hyponatremia Homeless Plan Continue antibiotics: ceftriaxone and metronidazole Monitor H&H closely Monitor and replace electrolyte Consult health and social care teacher for homelessness Morphine 1 mg q4hrs p.r.n. Repeat CBC and CMP in the morning Diet: NPO per Surgeon DVT prophylaxis: young patient, encouraged mobility Code status: FULL Discussed for more than 35 minute Case and plan discussed with Dr. Marino Plan discussed with: Patient Date of Service: Sep 27, 2024 Billing Provider: MARK MARINO MD Common Visit Codes: [id number] INP/OBS CARE(HIGH) NATHAN MIX RESIDENT Sep 27, 2024 13:06 MARK MARINO MD Sep 27, 2024 21:19
--- NOTE | 2024-09-27 14:33 | DVHPN2 ---
Progress Note Date Seen: Sep 27, 2024 Medical Necessity Reason Pt with a Central, PICC or Fol: No Objective vital signs Vital Sign Date Time Temp Pulse Resp B/P (MAP) Pulse Ox O2 Delivery O2 Flow Rate FiO2 09/27/24 13:00 98.5 86 18 129/51 (77) 92 98.5 09/26/24 21:49 Room Air* 0 21 Total Intake and Output 09/26/24 09/26/24 09/27/24 15:00 23:00 07:00 Intake Total 1100 ml 50 ml Output Total 500 ml Balance 1100 ml -450 ml medications Current Medications Medications Dose Ordered Sig/Todd Route Start Time Stop Time Status Last Admin Dose Admin Ceftriaxone Sodium 50 ml @ 100 mls/hr Q24H IV 09/27/24 02:00 09/27/24 02:09 100 MLS/HR Metronidazole 100 ml @ 100 mls/hr Q8H IV 09/27/24 10:00 09/27/24 09:52 100 MLS/HR Morphine Sulfate 1 mg Q4HP PRN IV 09/27/24 01:15 laboratory and microbiology Laboratory Tests 09/27/24 01:29 Test 09/27/24 01:29 Range/Units Serum Glucose 95 74-106 mg/dL Problem List/Assessment/Plan Problem List/Assessment/Plan afebrile VSS ABD SOFT RLQ TENDER DRAIN IN PLACE 30 CC SEROSANGUINEOUS NO BM KEEP NPO IV ABX Plan discussed with: Patient My Orders My Orders Orders - LAUREN STEINER MD Procedure Category Date Status Time Obtain Consent For: ORDERS 09/26/24 Transmitted 17:44 Obtain Consent For VERN 09/26/24 In Process Anesthesia 17:44 LAUREN STEINER MD Sep 27, 2024 14:33
[2024-09-27] MEDS: MORPHINE SULFATE INJ 2 MG/ml SYRG IV PRN (14:58)
[2024-09-28] VITALS (7 sets, daily range): BP systolic 106–122; BP diastolic 63–72; PULSE 82–102; RESP 14–20; TEMP 98.2–99.8; O2SAT 95–98
[2024-09-28 05:38] LABS: Basophils # (auto) 0 10 ^3/uL (0-0.2); Basophils % (auto) 0.2 % (0.0-2.0); Eosinophils # (auto) 0.1 10 ^3/uL (0-0.8); Eosinophils % (auto) 1.1 % (0.0-7.0); Hemoglobin 12.5 g/dL (13.5-17.5); Lymphocytes # (auto) 1.5 10 ^3/uL (0.4-5.4); Lymphocytes % (auto) 16.2 % (10.0-50.0); Mean Corpuscular Hemoglobin 32.2 pg (28.0-32.0); Mean Corpuscular Hgb Conc. 34.9 g/dL (32.0-36.0); Mean Corpuscular Volume 92.3 fL (80.0-100.0); Monocytes # (auto) 1.1 10 ^3/uL (0-1.3); Monocytes % (auto) 11.3 % (0.0-12.0); Neutrophils # (auto) 6.7 10 ^3/uL (1.6-8.6); Neutrophils % (auto) 71.2 % (37.0-80.0); Platelet Count (auto) 296 10^3/uL (140-450); Red Cell Distribution Width 14.5 % (11.8-14.3); White Blood Cell 9.4 10^3/uL (4.4-10.8)
[2024-09-28 06:00] LABS: Alanine Aminotransferase 30 U/L (7-40); Albumin 3.9 g/dL (3.2-4.8); Alkaline Phosphatase 104 U/L (46-116); Anion Gap 11 (5-15); Aspartate Aminotransferase 28 U/L (13-40); BUN/Creatinine Ratio 10.3 (10.0-20.0); Calcium 9.2 mg/dL (8.7-10.4); Carbon Dioxide 24 mmol/L (20-31); Chloride 101 mmol/L (98-107); Glucose 87 mg/dL (74-106)
[2024-09-28 06:01] LABS: Bilirubin, Total 0.9 mg/dL (0.2-1.0); Total Protein 6.2 g/dL (5.7-8.2)
[2024-09-28 06:04] LABS: Blood Urea Nitrogen 7 mg/dL (9-23); Potassium 3.3 mmol/L (3.5-5.1); Sodium 136 mmol/L (136-145)
--- NOTE | 2024-09-28 16:45 | DVHPN2 ---
Progress Note Date Seen: Sep 28, 2024 Medical Necessity Reason Pt with a Central, PICC or Fol: No Objective vital signs Vital Sign Date Time Temp Pulse Resp B/P (MAP) Pulse Ox O2 Delivery O2 Flow Rate FiO2 09/28/24 13:00 98.5 102 20 122/68 (86) 97 98.5 09/27/24 20:00 Room Air* 0 21 Total Intake and Output 09/27/24 09/27/24 09/28/24 15:00 23:00 07:00 Intake Total 100 ml 820 ml 150 ml Output Total 450 ml 100 ml Balance 100 ml 370 ml 50 ml medications Current Medications Medications Dose Ordered Sig/Todd Route Start Time Stop Time Status Last Admin Dose Admin Ceftriaxone Sodium 50 ml @ 100 mls/hr Q24H IV 09/27/24 02:00 09/28/24 01:08 100 MLS/HR Metronidazole 100 ml @ 100 mls/hr Q8H IV 09/27/24 10:00 09/28/24 13:08 100 MLS/HR Hydromorphone HCl 0.25 mg Q4HPRN PRN IV 09/28/24 14:45 laboratory and microbiology Laboratory Tests 09/28/24 04:49 Test 09/28/24 04:49 Range/Units Serum Glucose 87 74-106 mg/dL Problem List/Assessment/Plan Problem List/Assessment/Plan afebrile VSS ABD SOFT RLQ TENDER BUT LESS DRAIN IN PLACE 30 CC SEROSANGUINEOUS NO BM KEEP NPO IV ABX Plan discussed with: Patient My Orders My Orders Orders - LAUREN STEINER MD Procedure Category Date Status Time Hydromorphone PHA 09/28/24 In Process Injection (Dilaudid 14:45 LAUREN STEINER MD Sep 28, 2024 16:45
[2024-09-28] MEDS: HYDROmorphone HCL 2 MG/ML VL/or syr IV PRN (17:23)
--- NOTE | 2024-09-28 22:26 | DVHPN2 ---
Subjective The patient is seen and examined at bedside. Can not tolerate clear liquid diet. The patient was back to NPO as per surgeon. Reviewed: Care Plan, H&P, Labs, Medications, Previous Orders, Radiology Changes from previous H/P or p: No Changes Objective Vitals Vital Signs Date Time Temp Pulse Resp B/P (MAP) Pulse Ox O2 Delivery O2 Flow Rate FiO2 09/28/24 21:00 99.5 82 19 114/70 (85) 98 99.5 09/28/24 08:00 Room Air* 0 21 Intake/Output Intake and Output 09/28/24 07:00 Intake Total 1070 ml Output Total 550 ml Balance 520 ml Intake Oral 720 ml IV Total 350 ml Output Urine Total 550 ml General Appearance: Alert, Oriented X3, Cooperative, No acute distress HEENT: Atraumatic, PERRLA, EOMI, Mucous membr. moist/pink Neck: Supple Lungs: Clear to auscultation, Normal air movement Cardiovascular: Regular rate, Normal S1, Normal S2, No murmurs, Gallops, Rubs Abdomen: Normal bowel sounds, Soft, No tenderness Neuro: Cranial nerves 3-12 NL Psych/Mental Status: Mental status NL Medications Current Medications Medications Dose Ordered Sig/Todd Route Start Time Stop Time Status Last Admin Dose Admin Ceftriaxone Sodium 50 ml @ 100 mls/hr Q24H IV 09/27/24 02:00 09/28/24 01:08 100 MLS/HR Metronidazole 100 ml @ 100 mls/hr Q8H IV 09/27/24 10:00 09/28/24 19:27 100 MLS/HR Hydromorphone HCl 0.25 mg Q4HPRN PRN IV 09/28/24 14:45 09/28/24 17:23 0.25 MG Laboratory Results Laboratory Tests 09/28/24 04:49 Chemistry Test 09/28/24 04:49 Albumin 3.9 g/dL (3.2-4.8) Calcium Level 9.2 mg/dL (8.7-10.4) Total Protein 6.2 g/dL (5.7-8.2) LFT Test 09/28/24 04:49 Alanine Aminotransferase (ALT) 30 U/L (7-40) Alkaline Phosphatase 104 U/L (46-116) Aspartate Amino Transferase (AST) 28 U/L (13-40) Total Bilirubin 0.9 mg/dL (0.2-1.0) Urinalysis Test 09/26/24 11:39 Urine Color [place] (Yellow) H Urine Clarity Clear (Clear) Urine pH 6.0 (5.0-9.0) Urine Specific [place] 1.045 (1.001-1.035) Urine Protein 1+ (Negative) H Urine Ketones 2+ (Negative) H Urine Blood 1+ /uL (Negative) H Urine Nitrite Negative (Negative) Urine Bilirubin 1+ (Negative) Urine Urobilinogen 8 mg/dL (Negative) H Urine Leukocyte Esterase Negative /uL (Negative) Urine RBC 2 /hpf (0 - 3) Urine Microscopic WBC 5 /HPF (0-3) H Urine Squamous Epithelial Cells Few /hpf (<5) Urine Bacteria None seen /hpf (None Seen) Urine Mucus Few (None Seen) Urine Glucose Normal mg/dL (Normal) Labs and/or images reviewed: Labs reviewed by me Assessment/Plan Assessment/Plan Sepsis due to acute appendicitis peritonitis due intra-abdominal abscess. Acute appendicitis status post appendectomy. Acute blood loss anemia Hyponatremia Homeless Plan Continue antibiotics: ceftriaxone and metronidazole Monitor H&H closely Monitor and replace electrolyte Consult social media strategist for homelessness Morphine 1 mg q4hrs p.r.n. Repeat CBC and CMP in the morning Diet: NPO per Surgeon DVT prophylaxis: young patient, encouraged mobility Plan discussed with: Patient Date of Service: Sep 28, 2024 Billing Provider: MARK WHEELER MD Common Visit Codes: [id number] INP/OBS CARE(HIGH) MARK WHEELER MD Sep 28, 2024 22:26
[2024-09-29] VITALS (8 sets, daily range): BP systolic 111–128; BP diastolic 62–75; PULSE 61–105; RESP 14–20; TEMP 98.1–99.8; O2SAT 94–99
[2024-09-29 10:53] LABS: Basophils # (auto) 0 10 ^3/uL (0-0.2); Basophils % (auto) 0.1 % (0.0-2.0); Eosinophils # (auto) 0.2 10 ^3/uL (0-0.8); Eosinophils % (auto) 1.6 % (0.0-7.0); Hematocrit 35.5 % (41.0-53.0); Hemoglobin 12.1 g/dL (13.5-17.5); Lymphocytes # (auto) 1.6 10 ^3/uL (0.4-5.4); Lymphocytes % (auto) 16.4 % (10.0-50.0); Mean Corpuscular Hemoglobin 31.7 pg (28.0-32.0); Mean Corpuscular Hgb Conc. 34.1 g/dL (32.0-36.0); Monocytes % (auto) 10.1 % (0.0-12.0); Neutrophils % (auto) 71.8 % (37.0-80.0); Platelet Count (auto) 367 10^3/uL (140-450); Red Blood Cells 3.82 10^6/uL (4.5-5.90); Red Cell Distribution Width 14.6 % (11.8-14.3); White Blood Cell 9.8 10^3/uL (4.4-10.8)
[2024-09-29 11:25] LABS: Calcium 9.5 mg/dL (8.7-10.4); Chloride 101 mmol/L (98-107); Potassium 3.5 mmol/L (3.5-5.1); Sodium 137 mmol/L (136-145)
[2024-09-29 11:26] LABS: Anion Gap 12 (5-15); Carbon Dioxide 24 mmol/L (20-31)
--- NOTE | 2024-09-29 11:29 | DVHPN2 ---
Subjective The patient is seen and examined at bedside. The patient said he is hungry today and wished to eat. The patient had passed gas and had a bowel movement today. Reviewed: Care Plan, H&P, Labs, Medications, Previous Orders, Radiology Changes from previous H/P or p: No Changes Objective Vitals Vital Signs Date Time Temp Pulse Resp B/P (MAP) Pulse Ox O2 Delivery O2 Flow Rate FiO2 09/29/24 08:49 98.9 71 16 116/73 (87) 97 98.9 09/29/24 08:00 Room Air* 0 21 Intake/Output Intake and Output 09/29/24 07:00 Intake Total 640 ml Output Total 600 ml Balance 40 ml Intake Oral 200 ml IV Total 440 ml Output Urine Total 600 ml General Appearance: Alert, Oriented X3, Cooperative, No acute distress HEENT: Atraumatic, PERRLA, EOMI, Mucous membr. moist/pink Neck: Supple Lungs: Clear to auscultation, Normal air movement Cardiovascular: Regular rate, Normal S1, Normal S2, No murmurs, Gallops, Rubs Abdomen: Normal bowel sounds, Soft, No tenderness Neuro: Cranial nerves 3-12 NL Psych/Mental Status: Mental status NL Medications Current Medications Medications Dose Ordered Sig/Todd Route Start Time Stop Time Status Last Admin Dose Admin Ceftriaxone Sodium 50 ml @ 100 mls/hr Q24H IV 09/27/24 02:00 09/29/24 01:40 100 MLS/HR Metronidazole 100 ml @ 100 mls/hr Q8H IV 09/27/24 10:00 09/29/24 09:01 100 MLS/HR Hydromorphone HCl 0.25 mg Q4HPRN PRN IV 09/28/24 14:45 09/28/24 17:23 0.25 MG Laboratory Results Laboratory Tests 09/29/24 10:22 Chemistry Test 09/29/24 10:22 Calcium Level Pending Urinalysis Test 09/26/24 11:39 Urine Color [place] (Yellow) H Urine Clarity Clear (Clear) Urine pH 6.0 (5.0-9.0) Urine Specific [place] 1.045 (1.001-1.035) Urine Protein 1+ (Negative) H Urine Ketones 2+ (Negative) H Urine Blood 1+ /uL (Negative) H Urine Nitrite Negative (Negative) Urine Bilirubin 1+ (Negative) Urine Urobilinogen 8 mg/dL (Negative) H Urine Leukocyte Esterase Negative /uL (Negative) Urine RBC 2 /hpf (0 - 3) Urine Microscopic WBC 5 /HPF (0-3) H Urine Squamous Epithelial Cells Few /hpf (<5) Urine Bacteria None seen /hpf (None Seen) Urine Mucus Few (None Seen) Urine Glucose Normal mg/dL (Normal) Labs and/or images reviewed: Labs reviewed by me Assessment/Plan Assessment/Plan Sepsis due to acute appendicitis peritonitis due intra-abdominal abscess. Acute appendicitis status post appendectomy. Acute blood loss anemia Hyponatremia Homeless Plan Continue antibiotics: ceftriaxone and metronidazole Monitor H&H closely Monitor and replace electrolyte Consult social work supervisor for homelessness Morphine 1 mg q4hrs p.r.n. Repeat CBC and CMP in the morning Diet: We will advance diet to clear liquid diet if okay with surgeon. DVT prophylaxis: young patient, encouraged mobility Discharge planning This medical document was created using an electronic medical record system with M[employer]Flowgram direct computerized dictation system. Although this document has been carefully reviewed, there may still be some phonetic and typographical errors. These areas are purely typographical due to imperfections of the software programs, and do not reflect any compromise in the patient's medical care. Plan discussed with: Patient My Orders Orders - MARK WHEELER MD Procedure Category Date Status Time Basic Metabolic Panel LAB 09/29/24 In Process 05:00 Date of Service: Sep 29, 2024 Billing Provider: MARK WHEELER MD Common Visit Codes: [id number] INP/OBS CARE(HIGH) MARK WHEELER MD Sep 29, 2024 11:29
[2024-09-29 11:31] LABS: BUN/Creatinine Ratio 14.1 (10.0-20.0); Blood Urea Nitrogen 9 mg/dL (9-23); Glucose 88 mg/dL (74-106)
--- NOTE | 2024-09-29 21:27 | DVHPN2 ---
Progress Note Date Seen: Sep 29, 2024 Medical Necessity Reason Pt with a Central, PICC or Fol: No Objective vital signs Vital Sign Date Time Temp Pulse Resp B/P (MAP) Pulse Ox O2 Delivery O2 Flow Rate FiO2 09/29/24 21:01 99.8 105 14 115/71 (86) 96 99.8 09/29/24 08:00 Room Air* 0 21 Total Intake and Output 09/28/24 09/28/24 09/29/24 15:00 23:00 07:00 Intake Total 300 ml 340 ml Output Total 600 ml Balance -300 ml 340 ml medications Current Medications Medications Dose Ordered Sig/Todd Route Start Time Stop Time Status Last Admin Dose Admin Ceftriaxone Sodium 50 ml @ 100 mls/hr Q24H IV 09/27/24 02:00 09/29/24 01:40 100 MLS/HR Metronidazole 100 ml @ 100 mls/hr Q8H IV 09/27/24 10:00 09/29/24 17:24 100 MLS/HR Hydromorphone HCl 0.25 mg Q4HPRN PRN IV 09/28/24 14:45 09/29/24 16:31 0.25 MG Acetaminophen/ Hydrocodone Bitart 1 tab Q4HPRN PRN PO 09/29/24 16:45 laboratory and microbiology Laboratory Tests 09/29/24 10:22 Test 09/29/24 10:22 Range/Units Serum Glucose 88 74-106 mg/dL Problem List/Assessment/Plan Problem List/Assessment/Plan AFEBRILE VSS ABD SOFT RLQ TENDER BUT LESS DRAIN IN PLACE 30 CC SEROSANGUINEOUS BM + ALLOW CLEAR LIQUIDS IV ABX Plan discussed with: Patient LAUREN STEINER MD Sep 29, 2024 21:27
[2024-09-30] VITALS (7 sets, daily range): BP systolic 102–108; BP diastolic 57–64; PULSE 70–96; RESP 14–18; TEMP 98.5–99; O2SAT 94–98
[2024-09-30] MEDS: HYDROcodone-ACET 5/325MG TAB PO PRN (00:18)
[2024-09-30] MEDS: MORPHINE SULFATE INJ 2 MG/ml SYRG ONE (07:21)
[2024-09-30] MEDS: ceFAZolin 2 GM/D5W100ml 100 ML IV ONE (07:21)
--- NOTE | 2024-09-30 11:45 | DVHPN2 ---
Progress Note Date Seen: Sep 30, 2024 Medical Necessity Reason Pt with a Central, PICC or Fol: No Objective vital signs Vital Sign Date Time Temp Pulse Resp B/P (MAP) Pulse Ox O2 Delivery O2 Flow Rate FiO2 09/30/24 08:37 98.6 74 15 102/61 (75) 97 98.6 09/30/24 07:58 Room Air* 0 21 Total Intake and Output 09/29/24 09/29/24 09/30/24 15:00 23:00 07:00 Intake Total 100 ml 500 ml 300 ml Output Total 5 ml 300 ml Balance 100 ml 495 ml 0 ml medications Current Medications Medications Dose Ordered Sig/Todd Route Start Time Stop Time Status Last Admin Dose Admin Ceftriaxone Sodium 50 ml @ 100 mls/hr Q24H IV 09/27/24 02:00 09/30/24 01:41 100 MLS/HR Metronidazole 100 ml @ 100 mls/hr Q8H IV 09/27/24 10:00 09/30/24 09:25 100 MLS/HR Hydromorphone HCl 0.25 mg Q4HPRN PRN IV 09/28/24 14:45 09/29/24 16:31 0.25 MG Acetaminophen/ Hydrocodone Bitart 1 tab Q4HPRN PRN PO 09/29/24 16:45 09/30/24 00:18 1 TAB laboratory and microbiology Laboratory Tests 09/29/24 10:22 Test 09/29/24 10:22 Range/Units Serum Glucose 88 74-106 mg/dL Problem List/Assessment/Plan Problem List/Assessment/Plan AFEBRILE VSS ABD SOFT DRAIN IN PLACE 10 CC SEROSANGUINEOUS BM + KRYSTEN DIET DC DRAIN CLEARED FOR DISCHARGE INSTRUCTIONS RE DIET ACTIVITY F/UP GIVEN Plan discussed with: Patient LAUREN STEINER MD Sep 30, 2024 11:45
[2024-09-30] MEDS ORDERED: CEPH250C PO (13:49)
[2024-09-30] MEDS ORDERED: NAP500T PO (13:49)
[2024-09-30] MEDS ORDERED: DOCU-94 PO (13:49)
--- NOTE | 2024-09-30 13:59 | DVHDS2 ---
Discharge Summary Date of Admission Sep 26, 2024 at 19:17 Date of Discharge: Sep 30, 2024 Labs/Diagnostic Data: Laboratory Results Test 09/29/24 10:22 09/28/24 04:49 09/27/24 01:29 09/26/24 13:38 White Blood Count 9.8 10^3/uL (4.4-10.8) Red Blood Count 3.82 10^6/uL (4.5-5.90) Hemoglobin 12.1 g/dL (13.5-17.5) Hematocrit 35.5 % (41.0-53.0) Mean Corpuscular Volume 93.0 fL (80.0-100.0) Mean Corpuscular Hemoglobin 31.7 pg (28.0-32.0) Mean Corpuscular Hemoglobin Concent 34.1 g/dL (32.0-36.0) Red Cell Distribution Width 14.6 % (11.8-14.3) Platelet Count 367 10^3/uL (140-450) Mean Platelet Volume 7.6 fL (6.9-10.8) Neutrophils (%) (Auto) 71.8 % (37.0-80.0) Lymphocytes (%) (Auto) 16.4 % (10.0-50.0) Monocytes (%) (Auto) 10.1 % (0.0-12.0) Eosinophils (%) (Auto) 1.6 % (0.0-7.0) Basophils (%) (Auto) 0.1 % (0.0-2.0) Neutrophils # (Auto) 7.0 10 ^3/uL (1.6-8.6) Lymphocytes # (Auto) 1.6 10 ^3/uL (0.4-5.4) Monocytes # (Auto) 1.0 10 ^3/uL (0-1.3) Eosinophils # (Auto) 0.2 10 ^3/uL (0-0.8) Basophils # (Auto) 0 10 ^3/uL (0-0.2) Nucleated Red Blood Cells 0.0 % Sodium Level 137 mmol/L (136-145) Potassium Level 3.5 mmol/L (3.5-5.1) Chloride Level 101 mmol/L (98-107) Carbon Dioxide Level 24 mmol/L (20-31) Anion Gap 12 (5-15) Blood Urea Nitrogen 9 mg/dL (9-23) Creatinine 0.64 mg/dL (0.700-1.30) Glomerular Filtration Rate Calc 137 mL/min (>90) BUN/Creatinine Ratio 14.1 (10.0-20.0) Serum Glucose 88 mg/dL (74-106) Calcium Level 9.5 mg/dL (8.7-10.4) Total Bilirubin 0.9 mg/dL (0.2-1.0) Aspartate Amino Transferase (AST) 28 U/L (13-40) Alanine Aminotransferase (ALT) 30 U/L (7-40) Alkaline Phosphatase 104 U/L (46-116) Total Protein 6.2 g/dL (5.7-8.2) Albumin 3.9 g/dL (3.2-4.8) Magnesium Level 1.8 mg/dL (1.6-2.6) Prothrombin Time 10.6 sec (9.3-11.8) Prothrombin Time INR 1.00 (0.9-1.15) Activated Partial Thromboplast Time 30.9 SEC (24.5-34.5) Test 09/26/24 11:39 Urine Color [place] (Yellow) Urine Clarity Clear (Clear) Urine pH 6.0 (5.0-9.0) Urine Specific [place] 1.045 (1.001-1.035) Urine Protein 1+ (Negative) Urine Ketones 2+ (Negative) Urine Blood 1+ /uL (Negative) Urine Nitrite Negative (Negative) Urine Bilirubin 1+ (Negative) Urine Urobilinogen 8 mg/dL (Negative) Urine Leukocyte Esterase Negative /uL (Negative) Urine RBC 2 /hpf (0 - 3) Urine Microscopic WBC 5 /HPF (0-3) Urine Squamous Epithelial Cells Few /hpf (<5) Urine Bacteria None seen /hpf (None Seen) Urine Mucus Few (None Seen) Urine Glucose Normal mg/dL (Normal) Other Laboratory Tests 09/29/24 10:22 Brief Hx & Hospital Course: This is a 23-year-old male with past history of anxiety came to the hospital due to abdominal pain since 2 days. He had a sharp constant pain localized at left lower quadrant radiating to the right groin and the, 8/10 which was worsening with mobility and changing position. Also reports nausea, vomiting, fever and decreased oral intake. He denies cough, shortness with, or any recent bladder habit changes. CT scan finding was consistent with appendicitis, which subsequently underwent laparoscopy appendectomy, and drained the intra-abdominal abscess. Sepsis due to acute appendicitis peritonitis due intra-abdominal abscess. Acute appendicitis status post appendectomy. Acute blood loss anemia Hyponatremia Homeless discharged to self care Condition at Discharge: Good Final Diagnosis/Problems List see above Discharge Disposition: Home Discharge Instruct/Medications Diet: Cardiac 2g Na,low cholest Activity: No Restrictions, As Tolerated Discharge Statement: "Patient was advised to return to the ER or call 911 if any headaches, dizziness, shortness of breath, chest pain, abdominal pain, bleeding, fevers, or worsening of medical condition. Patient was counseled about treatment plan, medications, possible side effects, patientverbalized understanding. All questions were answered to the best of my ability. This discharge took greater then 30 minutes in planning, reviewing documentation, counseling the patient, and discussing with other team members." ASSESSMENT ASSESSMENT Assessment Date of Service: Sep 30, 2024 Billing Provider: NICOLE MURILLO DO Common Visit Codes: 62241-RDQ/OBS DISCH DAY >30min NICOLE MURILLO DO Sep 30, 2024 13:59
== END 2024-09-30 19:15 | disposition home or self-care (01) | DRG 710 ==
LOC: ER 11:13 → OVERFLOW 19:17 → WEST WING 21:36
PROVIDERS: ADMIT Emergency Medicine; ATTEND Internal Medicine
PROC: 0W9G4ZZ Drainage of Peritoneal Cavity, Percutaneous Endoscopic Approach (ICD-10-PCS; 2024-09-26)
PROC: 0DNJ4ZZ Release Appendix, Percutaneous Endoscopic Approach (ICD-10-PCS; 2024-09-26)
PROC: 0DTJ4ZZ Resection of Appendix, Percutaneous Endoscopic Approach (ICD-10-PCS; principal; 2024-09-26 18:50)
DX: A41.9 Sepsis, unspecified organism (principal); K35.33 Acute appendicitis with perforation, localized peritonitis, and gangrene, with abscess; E87.1 Hypo-osmolality and hyponatremia; D62 Acute posthemorrhagic anemia; I10 Essential (primary) hypertension; F17.210 Nicotine dependence, cigarettes, uncomplicated; E11.9 Type 2 diabetes mellitus without complications; F41.9 Anxiety disorder, unspecified; K66.0 Peritoneal adhesions (postprocedural) (postinfection); M54.9 Dorsalgia, unspecified; Z59.00 Homelessness unspecified
CPT/HCPCS: 36415; 74176; 80048; 80053; 81001; 83735; 85025; 85610; 85730; 86850; 86900; 86901; 96361; 96365; 96375; 96376; G0378; J0131; J1885; J2405; J2543; J2704; J3490

== ENCOUNTER 2024-10-06 16:09 | Emergency (ER) | payer MEDICAID ==
[~2024-10-06] VITALS: Ht 165.1 cm; Wt 50.0 kg
[~2024-10-06 16:09] MED LIST changes: +CEPH250C PO; +DOCU-94 PO; +NAP500T PO; -SODIUM CHLORIDE 0.9% 1,000 ML IV ONE
[2024-10-06 16:32] VITALS: BP 94/72; PULSE 70; RESP 17; O2SAT 97
--- NOTE | 2024-10-06 17:01 | DVH ---
X-ray left knee Technique: AP lateral and oblique views REASON FOR EXAM: fall FINDINGS: No fractures or dislocations. No erosions or periosteal reaction. Articular surfaces are sm ooth. IMPRESSION: 1. No bony pathology
--- NOTE | 2024-10-06 17:30 | ED.PDOC ---
Musculoskeletal HPI Comments Ric HPI Poor historian 23 yo male presents to the ED for a chief complaint of right leg "giving out on me" s/p appendectomy about a week ago. Patient reports left leg feels " wobbly" and states right knee pain s/p fall yesterday. Patient admits to drinking alcohol yesterday but states it is not associated to him falling. He denies any head trauma or LOC. Patient is a poor historian. Patient admits to smoking marijuana. Vitals BP: 94/72 HR: 70 Temp: 99.6 F SPO2: 97% RA RR:17 Past medical history: Denies Past surgical history: Appendectomy No allergies reported REVIEW OF SYSTEMS: CONSTITUTIONAL: Denies acute: fever, diaphoresis, chills, generalized weakness. HEAD: Denies acute: headache, photophobia Eyes: Denies acute: Double vision, vision loss, eye pain, eye discharge. EARS: Denies acute: tinnitus, hearing loss, ear discharge, ear pain, THROAT: Denies acute: sore throat, swelling, difficulty swallowing , pain with swallowing, change in voice. NECK: Denies acute: neck pain, neck swelling, stiff neck. HEART: Denies acute : chest pain, palpitations, LUNGS: Denies acute: SOB, wheezing, cough, hemoptysis ABDOMEN: Denies acute: abdominal pain, Nausea, Vomiting, diarrhea, melena , hematemesis, hematochezia SKIN: Denies acute: rash, redness, lesions, itchiness. EXTREMITIES: Denies acute: calf pain, numbness, tingling, weakness, Denies acute: Low back pain. Neuro: Denies acute: focal neurological deficit, motor or sensory focal neurological deficit, tremors, seizure like activity, confusion, dizziness, change in mental status, loss of bowel or bladder function, cauda equina like symptoms. : Denies acute: dysuria, hematuria, flank pain, increase in urinary frequency. PSYCH: Denies acute: hallucination, suicidal ideation, homicidal ideation. PHYSICAL EXAM: General: no acute distress, awake and alert. Head: normocephalic, atraumatic. Neck: supple, trachea is midline, no swelling. Throat: Normal phonation. Eyes:, no erythema, no purulent discharge, no proptosis, no icterus. Heart: regular rate, regular rhythm, no significant murmur appreciated. Lungs: no apparent respiratory distress, Able to speak in full sentences. No wheezing, no rhonchi, no crackles. No stridors Clear to auscultation bilaterally. Abdomen: non tender to palpation, non distended, soft, no guarding, no rebound, + bowel sounds. Neuro: Awake, Alert, oriented to name, self, situation, follows commands GCS=15. Speech is normal. Skin: no petechia, no purpura, no cyanosis, non-pale, not jaundice. Lower extremities: --no - Pitting edema no deformity, no calf TTP. Evaluation of the area of complaint is the right knee.: Noted mild contusion to the medial aspect of the right knee was minimal swelling and redness. Noted an old scab. Patient is neurovascularly intact in the affected extremity. Pedal pulses palpable. Sensory and motor are present. Patient is able to flex and extend his right knee right hip. Makes eye contact. moves all four extremities. Face: no apparent facial droop. Ears: Normal appearing TM b/l, Pedal pulses are palpable. ED COURSE: Chief Complaint: Lower Extremity Time Seen by MD: 17:15 Primary Care Provider: NONE Reviewed Notes: Nurses Notes, Allergies Allergies: Coded Allergies: NO KNOWN ALLERGIES (Unverified , 11/03/21) Home Meds Active Scripts Cephalexin (KEFLEX CAPSULE) 250 Mg Cp, 2 CAP PO BID for 5 Days, #20 CAP Prov:ANAMARIA MURILLOMY Mayte DO 09/30/24 Docusate Sodium (Colace) 100 Mg Cap, 1 CAP PO BID for 5 Days, #10 CAP Prov:NICOLE MURILLO DO 09/30/24 Naproxen (NAPROSYN TABLET) 500 Mg Tb, 1 TAB PO BID for 15 Days, #30 TAB 1 Refill Prov:NICOLE MURILLO DO 09/30/24 Information Source: Patient Mode of Arrival: Wheelchair Location: Right Past Medical History PAST MEDICAL HISTORY: Denies Surgical History: Denies all surgeries Family History Family History: Reviewed,noncontributory to illness Social History Smoker: Cigarettes Alcohol: Occasionally Drugs: Marijuana Lives In: Home Was a procedure done? Was a procedure done?: No Differential Diagnosis EXT Differential Diagnosis: Deep Vein Thrombosis, Compartment Syndrome, Fracture, Sprain, Dislocation, Contusion, Strain, Neurovascular injury, Arthritis, B ursitis X-Ray, Labs, Meds, VS Vital Signs Date Time Temp Pulse Resp B/P (MAP) Pulse Ox O2 Delivery O2 Flow Rate FiO2 10/06/24 16:32 99.6 70 17 94/72 (79) 97 Lab Test 10/06/24 18:03 10/06/24 17:35 Range/Units White Blood Count 8.1 4.4-10.8 10^3/uL Red Blood Count 4.39 L 4.5-5.90 10^6/uL Hemoglobin 13.7 13.5-17.5 g/dL Hematocrit 40.8 L 41.0-53.0 % Mean Corpuscular Volume 93.0 80.0-100.0 fL Mean Corpuscular Hemoglobin 31.3 28.0-32.0 pg Mean Corpuscular Hemoglobin Concent 33.6 32.0-36.0 g/dL Red Cell Distribution Width 14.7 H 11.8-14.3 % Platelet Count 825 *H 140-450 10^3/uL Mean Platelet Volume 7.0 6.9-10.8 fL Neutrophils (%) (Auto) 48.1 37.0-80.0 % Lymphocytes (%) (Auto) 43.8 10.0-50.0 % Monocytes (%) (Auto) 5.4 0.0-12.0 % Eosinophils (%) (Auto) 2.4 0.0-7.0 % Basophils (%) (Auto) 0.3 0.0-2.0 % Neutrophils # (Auto) 3.9 1.6-8.6 10 ^3/uL Lymphocytes # (Auto) 3.6 0.4-5.4 10 ^3/uL Monocytes # (Auto) 0.4 0-1.3 10 ^3/uL Eosinophils # (Auto) 0.2 0-0.8 10 ^3/uL Basophils # (Auto) 0 0-0.2 10 ^3/uL Nucleated Red Blood Cells 0.0 % Platelet Estimate Increased Large Platelets Few Anisocytosis (manual) Slight Sodium Level 140 136-145 mmol/L Potassium Level 4.0 3.5-5.1 mmol/L Chloride Level 105 98-107 mmol/L Carbon Dioxide Level 27 20-31 mmol/L Anion Gap 8 5-15 Blood Urea Nitrogen 10 9-23 mg/dL Creatinine 0.79 0.700-1.30 mg/dL Glomerular Filtration Rate Calc 129 >90 mL/min BUN/Creatinine Ratio 12.7 10.0-20.0 Serum Glucose 96 74-106 mg/dL Lactic Acid Level 0.6 0.4-2.0 mmol/L Calcium Level 10.2 8.7-10.4 mg/dL Total Bilirubin 0.5 0.2-1.0 mg/dL Aspartate Amino Transferase (AST) 16 13-40 U/L Alanine Aminotransferase (ALT) 17 7-40 U/L Alkaline Phosphatase 65 46-116 U/L Total Protein 7.5 5.7-8.2 g/dL Albumin 4.8 3.2-4.8 g/dL Plasma/Serum Blood Alcohol < 3.0 <10 mg/dL Urine Color Light-yellow Yellow Urine Clarity Turbid H Clear Urine pH 5.5 5.0-9.0 Urine Specific [place] 1.017 1.001-1.035 Urine Protein Negative Negative Urine Ketones Negative Negative Urine Blood Negative Negative /uL Urine Nitrite Negative Negative Urine Bilirubin Negative Negative Urine Urobilinogen Normal Negative mg/dL Urine Leukocyte Esterase Negative Negative /uL Urine RBC 1 0 - 3 /hpf Urine Microscopic WBC 6 H 0-3 /HPF Urine Squamous Epithelial Cells None seen <5 /hpf Urine Bacteria None seen None Seen /hpf Urine Mucus Few None Seen Urine Glucose Normal Normal mg/dL Urine Opiates Screen Pending Urine Fentanyl Screen Pending Urine Barbiturates Screen Pending Urine Phencyclidine Screen Pending Urine Amphetamines Screen Pending Urine Benzodiazepines Screen Pending Urine Cocaine Screen Pending Urine Cannabinoids Screen Pending [address] [address] Ph: [phone] DIAGNOSTIC IMAGING Diagnostic Imaging Report : [id number] Signed PATIENT: VIVI CID ACCT: [id number] UNIT: [id number] : 2000 LOC: ER ROOM / BED: / AGE / SEX: 23 / M ADM STATUS: REG ER SERVICE [id number] ORDERING PHYSICIAN: FRANSICO TROTTER NP PROCEDURE(s): LKNE3 - L KNEE 3V XRAY REASON: fall ORDER NUMBER(s): [id number], ACCESSION NUMBER(s): [id number] X-ray left knee Technique: AP lateral and oblique views REASON FOR EXAM: fall FINDINGS: No fractures or dislocations. No erosions or periosteal reaction. Articular surfaces are smooth. IMPRESSION: 1. No bony pathology ATED BY: RODRICK HENDERSON MD DICTATED DATE/TIME: 10/06/241658 SIGNED BY: RODRICK HENDERSON MD SIGNED DATE/TIME: 10/06/241658 CC: [place] [id number] Ph: [phone] DIAGNOSTIC IMAGING Diagnostic Imaging Report : [id number] Signed PATIENT: VIVI CID ACCT: [id number] UNIT: [id number] : 2000 LOC: ER ROOM / BED: / AGE / SEX: 23 / M ADM STATUS: REG ER SERVICE 23 ORDERING PHYSICIAN: CESIA REARDON DO PROCEDURE(s): RKN3 - R KNEE 3V XRAY REASON: fall/pain ORDER NUMBER(s): [id number], ACCESSION NUMBER(s): [id number] CLINICAL INDICATION: fall/pain TECHNIQUE: 3 radiographic views of the right knee were obtained. Comparison: XY L KNEE 3V XRAY on DOS: 10/06/24 FINDINGS/IMPRESSION: There is no evidence of acute fracture or dislocation. The visualized joint space is well maintained. The alignment is anatomical. There is no radiopaque foreign body. ATED BY: FARIBA KENNY DO DICTATED DATE/TIME: 10/06/241820 SIGNED BY: FARIBA KENNY DO SIGNED DATE/TIME: 10/06/241820 CC: Time of 1ST Reevaluation: 17:27 Reevaluation 1ST: Unchanged Time of 2ND Reevaluation: 20:37 (Drug screen will be ran tomorrow due to machine breaking down per lab. Will be fixed tommorrow ) Reevaluation 2ND: Unchanged Patient Education/Counseling: Diagnosis, Treatment Family Education/Counseling: No Family Present Departure 1 Departure Time of Disposition: 21:13 Impression: Primary Impression: Contusion of right knee Additional Impression: Thrombocytosis Disposition: 01 HOME / SELF CARE / HOMELESS Condition: Stable Additional Instructions: Additional discharge instructions: You MUST follow-up with your primary care/family doctor in 1 to 2 days. If you are unable to see your primary care/family doctor, please return to our emergency room for re-assessment and re-evaluation in 1 to 2 days. Return to the emergency room here in our facility or to the nearest ER [facility] if your symptoms change or worsen. CONSULTATIONS: you MUST Follow-up for consultation as soon as possible with: -orthopedic doctor and neurology in 1-2 days. Please call for appointment. You MUST call the consultants office yourself to make an appointment. You may need to arrange that through your insurance and/or your primary/family doctor. If you are unable to see the communication consultant in 1 to 2 days, you must return to our emergency room (or any other ER of your choice) for re-assessment and re- evaluation. Adequate fluid hydration. Below is a copy of your radiological report for follow up: [place] [address] Ph: [phone] DIAGNOSTIC IMAGING Diagnostic Imaging Report : [id number] Signed PATIENT: VIVI CID ACCT: [id number] UNIT: [id number] : 2000 LOC: ER ROOM / BED: / AGE / SEX: 23 / M ADM STATUS: REG ER SERVICE 21 ORDERING PHYSICIAN: CESIA REARDON DO PROCEDURE(s): RKN3 - R KNEE 3V XRAY REASON: fall pain ORDER NUMBER(s): [id number], ACCESSION NUMBER(s): [id number] CLINICAL INDICATION: fall pain TECHNIQUE: 3 radiographic views of the right knee were obtained. Comparison: XY R KNEE 3V XRAY on DOS: 10/06/24, XY L KNEE 3V XRAY on DOS: 10/06/24 FINDINGS/IMPRESSION: There is no evidence of acute fracture or dislocation. The visualized joint space is well maintained. The alignment is anatomical. There is no radiopaque foreign body. ATED BY: FARIBA KENNY DO DICTATED DATE/TIME: 10/06/242008 SIGNED BY: FARIBA KENNY DO SIGNED DATE/TIME: 10/06/242008 CC: [address] [address] Ph: [phone] DIAGNOSTIC IMAGING Diagnostic Imaging Report : [id number] Signed PATIENT: VIVI CID ACCT: [id number] UNIT: [id number] : 2000 LOC: ER ROOM / BED: / AGE / SEX: 23 / M ADM STATUS: REG ER SERVICE 1724 ORDERING PHYSICIAN: CESIA REARDON DO PROCEDURE(s): RKN3 - R KNEE 3V XRAY REASON: fall/pain ORDER NUMBER(s): [id number], ACCESSION NUMBER(s): [id number] CLINICAL INDICATION: fall/pain TECHNIQUE: 3 radiographic views of the right knee were obtained. Comparison: XY L KNEE 3V XRAY on DOS: 10/06/24 FINDINGS/IMPRESSION: There is no evidence of acute fracture or dislocation. The visualized joint space is well maintained. The alignment is anatomical. There is no radiopaque foreign body. ATED BY: FARIBA KENNY DO DICTATED DATE/TIME: 10/06/241820 SIGNED BY: FARIBA KENNY DO SIGNED DATE/TIME: 10/06/241820 CC: [address] [address] Ph: [phone] DIAGNOSTIC IMAGING Diagnostic Imaging Report : [id number] Signed PATIENT: VIVI CID ACCT: [id number] UNIT: [id number] : 2000 LOC: ER ROOM / BED: / AGE / SEX: 23 / M ADM STATUS: REG ER SERVICE 1648 ORDERING PHYSICIAN: FRANSICO TROTTER NP PROCEDURE(s): LKNE3 - L KNEE 3V XRAY REASON: fall ORDER NUMBER(s): [id number], ACCESSION NUMBER(s): [id number] X-ray left knee Technique: AP lateral and oblique views REASON FOR EXAM: fall FINDINGS: No fractures or dislocations. No erosions or periosteal reaction. Articular surfaces are smooth. IMPRESSION: 1. No bony pathology ATED BY: RODRICK HENDERSON MD DICTATED DATE/TIME: 10/06/241658 SIGNED BY: RODRICK HENDERSON MD SIGNED DATE/TIME: 10/06/241658 CC: Discharged With: Self Critical Care Note Critical Care Time?: No I personally scribed for CESIA REARDON J DO ([email or web address]) on 10/06/24 at 17:30. Electronically submitted by Oriana Sinclair ([facility]). I personally scribed for FRANCISCO REARDONE J DO ([email or web address]) on 10/06/24 at 18:11. Electronically submitted by Oriana Sinclair ([facility]). I personally scribed for CESIA REARDON J DO ([email or web address]) on 10/06/24 at 18:33. Electronically submitted by Oriana Sinclair ([facility]). I personally scribed for FRANCISCO REARDONE J DO ([email or web address]) on 10/06/24 at 20:39. Electronically submitted by Oriana Sinclair ([facility]). I personally scribed for FRANCISCO REARDONE J DO ([email or web address]) on 10/06/24 at 21:18. Electronically submitted by Oriana Sinclair ([facility]). FRANCISCO REARDONE J DO Oct 06, 2024 17:30
[2024-10-06 17:48] LABS: Urine Bacteria None Seen /hpf (None Seen)
[2024-10-06 17:50] LABS: Urine Blood Negative /uL (Negative); Urine Clarity Turbid (Clear); Urine Color Light-Yellow (Yellow); Urine Mucus FEW (None Seen); Urine Protein, UAD Negative (Negative); Urine Specific Gravity 1.017 (1.001-1.035); Urine Squamous Epithelial Cell None Seen /hpf (<5); Urine Urobilinogen Normal (Negative); Urine WBC 6 /HPF (0-3); Urine pH 5.5 (5.0-9.0)
[2024-10-06 18:14] LABS: Eosinophils # (auto) 0.2 10 ^3/uL (0-0.8); Hemoglobin 13.7 g/dL (13.5-17.5); Monocytes # (auto) 0.4 10 ^3/uL (0-1.3); White Blood Cell 8.1 10^3/uL (4.4-10.8)
[2024-10-06 18:16] LABS: Basophils # (auto) 0 10 ^3/uL (0-0.2); Basophils % (auto) 0.3 % (0.0-2.0); Eosinophils % (auto) 2.4 % (0.0-7.0); Hematocrit 40.8 % (41.0-53.0); Lymphocytes # (auto) 3.6 10 ^3/uL (0.4-5.4); Lymphocytes % (auto) 43.8 % (10.0-50.0); Mean Corpuscular Hemoglobin 31.3 pg (28.0-32.0); Mean Corpuscular Hgb Conc. 33.6 g/dL (32.0-36.0); Monocytes % (auto) 5.4 % (0.0-12.0); Neutrophils # (auto) 3.9 10 ^3/uL (1.6-8.6); Neutrophils % (auto) 48.1 % (37.0-80.0); Red Blood Cells 4.39 10^6/uL (4.5-5.90); Red Cell Distribution Width 14.7 % (11.8-14.3)
--- NOTE | 2024-10-06 18:23 | DVH ---
CLINICAL INDICATION: fall/pain TECHNIQUE: 3 radiographic views of the right knee were obtained. Comparison: XY L KNEE 3V XRAY on DOS: 10/06/24 FINDINGS/IMPRESSION: There is no evidence of acute fracture or dislocation. The visualized joint space is well maintained. The alignment is anatomical. There is no radiopaque foreign body.
[2024-10-06 18:24] LABS: Platelet Count (auto) 825 10^3/uL (140-450)
[2024-10-06 18:30] LABS: Alanine Aminotransferase 17 U/L (7-40); Albumin 4.8 g/dL (3.2-4.8); Alkaline Phosphatase 65 U/L (46-116); Anion Gap 8 (5-15); Aspartate Aminotransferase 16 U/L (13-40); BUN/Creatinine Ratio 12.7 (10.0-20.0); Blood Urea Nitrogen 10 mg/dL (9-23); Calcium 10.2 mg/dL (8.7-10.4); Carbon Dioxide 27 mmol/L (20-31); Chloride 105 mmol/L (98-107); Glucose 96 mg/dL (74-106); Sodium 140 mmol/L (136-145)
[2024-10-06 18:31] LABS: Bilirubin, Total 0.5 mg/dL (0.2-1.0); Total Protein 7.5 g/dL (5.7-8.2)
[2024-10-06 19:18] LABS: Blood Alcohol < 3.0 mg/dL (<10)
[2024-10-06 20:02] LABS: Anisocytosis Slight; Platelet Estimate Increased
[2024-10-06 20:03] LABS: Large Platelets FEW
--- NOTE | 2024-10-06 20:11 | DVH ---
CLINICAL INDICATION: fall pain TECHNIQUE: 3 radiographic views of the right knee were obtained. Comparison: XY R KNEE 3V XRAY on DOS: 10/06/24, XY L KNEE 3V XRAY on DOS: 10/06/24 FINDINGS/IMPRESSION: There is no evidence of acute fracture or dislocation. The visualized joint space is well maintained. The alignment is anatomical. There is no radiopaque foreign body.
[2024-10-06] MEDS: THIAMINE HCL 100 MG TAB PO ONE (23:27)
[2024-10-06] MEDS: HYDROcodone-ACET 5/325MG TAB PO ONE (23:28)
[2024-10-07 16:11] LABS: Opiate Scree,Urine Neg (NEGATIVE)
[2024-10-07 16:12] LABS: Cannabinoid Screen, Urine Pos (NEGATIVE)
[2024-10-07 16:14] LABS: Amphetamine Screen, Urine Pos (NEGATIVE); Barbiturate Scree,Urine Neg (NEGATIVE); Benzodiazephine Screen, Urine Pos (NEGATIVE); Cocaine Screen, Urine Pos (NEGATIVE); Phencyclidine Screen, Urine Neg (NEGATIVE)
== END 2024-10-06 23:35 | disposition home or self-care (01) ==
LOC: ER 16:09
DX: S80.01XA Contusion of right knee, initial encounter (principal); D75.839 Thrombocytosis, unspecified; Z90.49 Acquired absence of other specified parts of digestive tract; Z79.899 Other long term (current) drug therapy; W18.39XA Other fall on same level, initial encounter; Y93.89 Activity, other specified; Y92.89 Other specified places as the place of occurrence of the external cause; Y99.8 Other external cause status
CPT/HCPCS: 36415; 73562; 80053; 80307; 80320; 81001; 83605; 85025

== ENCOUNTER 2024-10-31 21:56 | Emergency (ER) | payer MEDICAID ==
[~2024-10-31] VITALS: Ht 165.1 cm; Wt 66.3 kg
[2024-11-01 00:04] VITALS: BP 92/65; PULSE 77; RESP 19; TEMP 98.8; O2SAT 99
--- NOTE | 2024-11-01 00:39 | DVH ---
Exam: CT CT AB PEL WO CON-NO ORAL OR IV History: ABD PAIN Comparison Study: CT CT AB PEL WO CON-NO ORAL OR IV on DOS: 09/26/24 Technique: Multidetector spiral CT of the abdomen was performed from lung bases to pubic symphysis. Imaging was performed without IV contrast. Axial, coronal and sagittal multiplanar reformats were ob tained from the axial data set by the technologist. Radiation Dose : 1. Abdomen/Pelvis: CTDIvol mGy, DLP mGy*cm. Findings: Evaluation of solid organs is limited due to lack of intravenous contrast use. Lung Bases: No abnormality demonstrated. Liver: Liver is normal in size. No focal lesions noted. Gallbladder and Biliary Tree: No abnormality demonstrated. Spleen: No abnormality demonstrated. Pancreas: No abnormality demonstrated. Adrenal Glands: No abnormality demonstrated. Kidneys: No abnormality demonstrated. No renal calculus or hydroureteronephrosis. Bladder: Grossly unremarkable for degree of distention. Bowel: Stomach appears grossly unremarkable. No abnormally dilated or thick-walled loops of large or small bowel noted. Interval appendectomy. Ascites: Absent Lymphadenopathy: No evidence of lymphadenopathy. Abdominal Wall and Mesentery: Unremarkable. Vasculature: Unremarkable. Pelvic Organs: Unremarkable. Musculoskeletal: No bony lesions are fracture. IMPRESSION: No abnormality demonstrated. Radiation optimization: All CT scans at this facility use at least one of these dose optimization erendira hniques: automated exposure control mA and/or kV adjustment per patient size (includes targeted exam s where dose is matched to clinical indication) or iterative reconstruction.
--- NOTE | 2024-11-01 01:15 | DVH ---
CT OF THE LUMBAR SPINE WITHOUT CONTRAST HISTORY: BACK PAIN LOWER LEG WEAKNESS COMPARISON: Correlation made to abdomen and pelvis CT obtained earlier the same day. TECHNIQUE: Thin section helical axial scans of the lumbar spine obtained. Sagittal and coronal reform atted images were performed. One or more of the following radiation dose reduction techniques were us ed for this examination: automated exposure control, adjustment of the mA and/or kV according to billy ent size, use of iterative reconstruction technique. FINDINGS: No grossly displaced fractures or subluxations identified. Vertebral body heights are maintained. Al ignment is preserved. The bony spinal canal and bony neural foramina appear grossly patent. The sacro iliac joints are symmetric. The appendix appears to be surgically absent. No free air or fluid identified within the imaged abdom en and pelvis. IMPRESSION: No acute appearing osseous abnormalities identified. If symptoms persist, follow-up MRI may be consid ered to further evaluate. HS:Y
--- NOTE | 2024-11-01 01:36 | ED.PDOC ---
Back pain HPI HPI Comments PT PRESENTED TO ED FOR BILATERAL LOWER EXTREMITY PAIN/WEAKNESS THAT STARTED AFTER A MECHANICAL, GROUND LEVEL FALL X3 WEEKS AGO. [facility]SM INTACT. GCS-15, ALL VSS. PT STATED HE PREFERS TO USE WHEELCHAIR BUT WALKS FINE AT HOME. Denies numbness, weakness, saddle anesthesia, loss of bowel or bladder control Chief Complaint: Lower Extremity Time Seen by MD: 22:06 Primary Care Provider: NONE Reviewed Notes: Nurses Notes, Medications, Allergies Allergies: Coded Allergies: NO KNOWN ALLERGIES (Unverified , 11/03/21) Home Meds Active Scripts Cephalexin (KEFLEX CAPSULE) 250 Mg Cp, 2 CAP PO BID for 5 Days, #20 CAP Prov:NICOLE MURILLO DO 09/30/24 Docusate Sodium (Colace) 100 Mg Cap, 1 CAP PO BID for 5 Days, #10 CAP Prov:NICOLE MURILLO DO 09/30/24 Naproxen (NAPROSYN TABLET) 500 Mg Tb, 1 TAB PO BID for 15 Days, #30 TAB 1 Refill Prov:NICOLE MURILLO DO 09/30/24 Information Source: Patient Mode of Arrival: Ambulatory Past Medical History PAST MEDICAL HISTORY: Denies Surgical History: Denies all surgeries Family History Family History: Reviewed,noncontributory to illness Social History Smoker: Cigarettes Alcohol: Occasionally Drugs: Marijuana Lives In: Home Constitutional: denies: chills, diaphoresis, fatigue, fever, malaise, sweats, weakness, others EENTM: denies: blurred vision, double vision, ear bleeding, ear discharge, ear drainage, ear pain, ear ringing, eye pain, eye redness, hearing loss, mouth pain, mouth swelling, nasal discharge, nose bleeding, nose congestion, nose pain, photophobia, tearing, throat pain, throat swelling, voice changes, others Respiratory: denies: cough, hemoptysis, orthopnea, SOB at rest, shortness of breath, SOB with excertion, stridor, wheezing, others Cardiovascular: denies: chest pain, dizzy spells, diaphoresis, Dyspnea on exertion, edema, irregular heart beat, left arm pain, lightheadedness, palpitations, PND, syncope, others Gastrointestinal: denies: abdomen distended, abdominal pain, blood streaked bowels, constipated, diarrhea, dysphagia, difficulty swallowing, hematemesis, melena, nausea, poor appetite, poor fluid intake, rectal bleeding, rectal pain, vomiting, others Genitourinary: denies: burning, dysuria, flank pain, frequency, hematuria, incontinence, penile discharge, penile sore, pain, testicle pain, testicle swelling, urgency, others Neurological: denies: dizziness, fainting, headache, left sided numbness, left sided weakness, numbness, paresthesia, pre-existing deficit, right sided numbness, right sided weakness, seizure, speech problems, tingling, tremors, weakness, others Musculoskeletal: reports: back pain; denies: gout, joint pain, joint swelling, muscle pain, muscle stiffness, neck pain, others Integumetry: denies: bruises, change in color, change in hair/nails, dryness, laceration, lesions, lumps, rash, wounds, others Allergic/Immunocompromised: denies: Difficulty Healing, Frequent Infections, Hives, Itching, others Hematologic/Lymphatic: denies: anemia, blood clots, easy bleeding, easy brui sing, swollen glands, others Endocrine: denies: excessive hunger, excessive sweating, excessive thirst, ex cessive urination, flushing, intolerance to cold, intolerance to heat, unexplained weight gain, unexplained weight loss, others Psychiatric: denies: anxiety, bipolar disorder, depression, hopeless, panic disorder, schizophrenia, sleepless, suicidal, others Physical Exam General Appearance: No Apparent Distress, Normal HEENT: Pharynx Normal Neck: Full Range of Motion, Non-Tender Respiratory: Lungs Clear, No Respiratory Distress, Normal Breath Sounds Cardiovascular: No Edema, No JVD, No Murmur, No Gallop, Normal Peripheral Pulses, Regular Rate/Rhythm Breast Exam: Deferred Gastrointestinal: No Organomegaly, Non Tender, No Pulsatile Mass, Normal Bowel Sounds, Soft Genitalia: Deferred Pelvic: Deferred Rectal: Deferred Extremities: Normal capillary refill, Normal inspection, Normal range of motion, Non-tender, No pedal edema Musculoskeletal : Location: Bilateral Extremity Location: Back (No tenderness noted over L1 through L5 without crepitus or step-offs strength sensory motion intact negative bilateral leg raise a pedal pulse) Apperance: Normal Neurologic: Alert, tanker driver II-XII nml as Tested, No Motor Deficits, Normal Affect, Normal Mood, No Sensory Deficits Cerebellar Function: Normal Reflexes: Normal Skin: Dry, Normal Color, Warm Lymphatic: No Adenopathy Was a procedure done? Was a procedure done?: No Back Pain Differential Dx Differential Diagnosis: Fracture, Musculoskeletal Pain X-Ray, Labs, Meds, VS Vital Signs Date Time Temp Pulse Resp B/P (MAP) Pulse Ox O2 Delivery O2 Flow Rate FiO2 11/01/24 00:04 77 19 99 Room Air 11/01/24 00:04 98.8 77 19 92/65 (74) 99 98.8 10/31/24 22:23 98.5 85 16 118/61 (80) 97 98.5 Lab Test 10/31/24 22:20 Range/Units POC Glucose 89 70-106 mg/dl X-Ray, Labs, Meds, VS Comment CT abdomen and pelvis and CT lumbar spine shows no acute findings, osseous lesions, fractures, or chronic concerns. Advised patient to follow up with his PCP 1-2 days consider further imaging such as MRI if symptoms persist. Discussed ER return precautions increasing pain, fever fevers, saddle anesthesia, loss of bowel or bladder control, patient indicated understanding. Time of 1ST Reevaluation: 01:30 Reevaluation 1ST: Improved Patient Education/Counseling: Diagnosis, Treatment, Prognosis, Need For Follow Up Family Education/Counseling: No Family Present Departure 1 Departure Time of Disposition: 01:36 Impression: Primary Impression: Lower extremity weakness Qualified Codes: R29.898 - Other symptoms and signs involving the musculoskeletal system Disposition: 01 HOME / SELF CARE / HOMELESS Condition: Stable Discharged With: Significant Other Critical Care Note Critical Care Time?: No Stability Stability form required: FINESSE Card Nov 01, 2024 01:36
== END 2024-11-01 01:40 | disposition home or self-care (01) ==
LOC: ER 21:56
DX: R53.1 Weakness (principal); R29.898 Other symptoms and signs involving the musculoskeletal system; F17.210 Nicotine dependence, cigarettes, uncomplicated; Z79.899 Other long term (current) drug therapy
CPT/HCPCS: 72131; 74176; 82962

== ENCOUNTER 2025-02-09 18:08 | Emergency (ER) | payer MEDICAID ==
[~2025-02-09] VITALS: Ht 165.1 cm; Wt 70.0 kg
[2025-02-09] MEDS ORDERED: IBUP-1456 PO (20:57)
--- NOTE | 2025-02-09 20:57 | ED.PDOC ---
Musculoskeletal HPI Comments 24-year-old male presents to ER with complaints of right ankle pain x two days. Patient reports he has been experiencing 8/10 pain localized to lateral aspect of right ankle x2 days s/p rolling his right ankle inwards "while at a constitution party". Denies use of medications for current symptoms. Patient presents to ER ambulatory on arrival, with steady gait, in no distress and also reports mild pain to right thumb x1 day that occurred while "working on his car". Denies numbness/tingling, right foot pain or any further symptoms/complaints Chief Complaint: Upper Extremity Time Seen by MD: 18:13 Primary Care Provider: UNKNOWN Reviewed Notes: Nurses Notes, Medications, Allergies Allergies: Coded Allergies: NO KNOWN ALLERGIES (Unverified , 11/03/21) Home Meds Active Scripts Ibuprofen (Ibuprofen) 800 Mg Tab, 1 TAB PO TID PRN, #30 TAB 0 Refills Prov:ARIADNE MCCABE 02/09/25 Cephalexin (KEFLEX CAPSULE) 250 Mg Cp, 2 CAP PO BID for 5 Days, #20 CAP Prov:NICOLE MURILLO DO 09/30/24 Docusate Sodium (Colace) 100 Mg Cap, 1 CAP PO BID for 5 Days, #10 CAP Prov:NICOLE MURILLO DO 09/30/24 Naproxen (NAPROSYN TABLET) 500 Mg Tb, 1 TAB PO BID for 15 Days, #30 TAB 1 Refill Prov:NICOLE MURILLO DO 09/30/24 Information Source: Patient Mode of Arrival: Ambulatory Past Medical History PAST MEDICAL HISTORY: Denies Surgical History: Appendectomy Family History Family History: Unknown Social History Smoker: Cigarettes, Less Than 1 Pack/Day Alcohol: Occasionally Drugs: Marijuana Lives In: Home Constitutional: denies: chills, diaphoresis, fatigue, fever, malaise, sweats, weakness, others EENTM: denies: blurred vision, double vision, ear bleeding, ear discharge, ear drainage, ear pain, ear ringing, eye pain, eye redness, hearing loss, mouth pain, mouth swelling, nasal discharge, nose bleeding, nose congestion, nose pain, photophobia, tearing, throat pain, throat swelling, voice changes, others Respiratory: denies: cough, hemoptysis, orthopnea, SOB at rest, shortness of breath, SOB with excertion, stridor, wheezing, others Cardiovascular: denies: chest pain, dizzy spells, diaphoresis, Dyspnea on exertion, edema, irregular heart beat, left arm pain, lightheadedness, palpitations, PND, syncope, others Gastrointestinal: denies: abdomen distended, abdominal pain, blood streaked bowels, constipated, diarrhea, dysphagia, difficulty swallowing, hematemesis, melena, nausea, poor appetite, poor fluid intake, rectal bleeding, rectal pain, vomiting, others Genitourinary: denies: burning, dysuria, flank pain, frequency, hematuria, incontinence, penile discharge, penile sore, pain, testicle pain, testicle swelling, urgency, others Neurological: denies: dizziness, fainting, headache, left sided numbness, left sided weakness, numbness, paresthesia, pre-existing deficit, right sided numbness, right sided weakness, seizure, speech problems, tingling, tremors, weakness, others Musculoskeletal: reports: others (As stated in HPI) Integumetry: denies: bruises, change in color, change in hair/nails, dryness, laceration, lesions, lumps, rash, wounds, others Allergic/Immunocompromised: denies: Difficulty Healing, Frequent Infections, Hives, Itching, others Hematologic/Lymphatic: denies: anemia, blood clots, easy bleeding, easy bruising, swollen glands, others Endocrine: denies: excessive hunger, excessive sweating, excessive thirst, excessive urination, flushing, intolerance to cold, intolerance to heat, unexplained weight gain, unexplained weight loss, others Psychiatric: denies: anxiety, bipolar disorder, depression, hopeless, panic disorder, schizophrenia, sleepless, suicidal, others Physical Exam General Appearance: No Apparent Distress HEENT: PERRL/EOMI Neck: Full Range of Motion, Non-Tender, Normal Respiratory: Chest Non-Tender, Lungs Clear, No Accessory Muscle Use, No Respiratory Distress, Normal Breath Sounds Cardiovascular: No Murmur, No Gallop, Regular Rate/Rhythm Breast Exam: Deferred Gastrointestinal: NOT DONE Genitalia: Deferred Pelvic: Deferred Rectal: Deferred Extremities: Normal capillary refill, Normal range of motion Musculoskeletal : Extremity Location: Ankle (Slight TTP noted to right lateral malleolus without skin changes/deformity. No TTP to right foot noted. Pulses intact. Steady gait noted), Thumb (No TTP/skin changes/deformity to right thumb or right wrist noted. Patient able to fully move all fingers of right hand. Pulses intact) Neurologic: Alert, No Motor Deficits, Normal Affect, Normal Mood, No Sensory Deficits Cerebellar Function: Normal Reflexes: Normal Skin: Dry, Normal Color, Warm Peripheral Pulses: 2+ dorsalis pedis (R), 2+ dorsalis pedis (L), 2+ Radial (R), 2+ Radial (L), 2+ Brachial (R), 2+ Brachial (L) Lymphatic: No Adenopathy Was a procedure done? Was a procedure done?: No Sedation Sedation?: No Differential Diagnosis EXT Differential Diagnosis: Fracture, Dislocation, Neurovascular injury X-Ray, Labs, Meds, VS Vital Signs Date Time Temp Pulse Resp B/P (MAP) Pulse Ox O2 Delivery O2 Flow Rate FiO2 02/09/25 18:30 98.1 109 16 122/86 (98) 98 98.1 PATIENT: KRIS CIDT: [id number]: [id number] : 2000 LOC: ER ROOM / BED: / AGE / SEX: 24 / M ADM STATUS: REG ER SERVICE 52 ORDERING PHYSICIAN: ARIADNE MCCABE PROCEDURE(s): RANKL - R ANKLE 3 VIEW REASON: right ankle pain ORDER NUMBER(s): [id number], ACCESSION NUMBER(s): [id number] CLINICAL INDICATION: right ankle pain TECHNIQUE: 3 radiographic views of the right ankle were obtained. Comparison: None FINDINGS/IMPRESSION: There is no evidence of acute fracture or dislocation. The visualized joint space is well maintained. The alignment is anatomical. There is no radiopaque foreign body. ATED BY: RODRICK HERNANDEZ Jr., DO DICTATED DATE/TIME: 02/09/252120 SIGNED BY: RODRICK HERNANDEZ Jr., SIGNED DATE/TIME: 02/09/252120 CC: Right ankle x-ray reviewed Advised on rest/no strenuous activity, elevation and alternate ice on/off as needed for pain Advised to follow up with PCP in 1-2 days Patient verbalized understanding and agreeable with current plan of care Advised to return to ER immediately if symptoms worsen Images Reviewed?: Images reviewed and evaluated by me Time of 1ST Reevaluation: 20:34 Reevaluation 1ST: N/A Patient Education/Counseling: Diagnosis, Treatment, Prognosis, Need For Follow Up Family Education/Counseling: No Family Present Departure 1 Departure Time of Disposition: 20:52 Impression: Primary Impression: Sprain of right ankle Qualified Codes: S93.401A - Sprain of unspecified ligament of right ankle, initial encounter Disposition: HOME / SELF CARE / HOMELESS Condition: Stable e-Prescriptions Ibuprofen (Ibuprofen) 800 Mg Tab 1 TAB PO TID PRN, #30 TAB 0 Refills Prov: ARIADNE MCCABE 02/09/25 Discharged With: Friend Critical Care Note Critical Care Time?: No Stability Stability form required: No Heart Score Heart Score: Heart Score Response (Comments) Value History N/A 0 EKG N/A 0 Age N/A 0 Risk Factors N/A 0 Troponin N/A 0 Total 0 ARIADNE MCCABE Feb 09, 2025 20:57
--- NOTE | 2025-02-09 21:23 | DVH ---
CLINICAL INDICATION: right ankle pain TECHNIQUE: 3 radiographic views of the right ankle were obtained. Comparison: None FINDINGS/IMPRESSION: There is no evidence of acute fracture or dislocation. The visualized joint space is well maintained. The alignment is anatomical. There is no radiopaque foreign body.
[2025-02-09 22:05] VITALS: BP 115/70; PULSE 99; RESP 17; TEMP 98.3; O2SAT 98
== END 2025-02-09 22:10 | disposition home or self-care (01) ==
LOC: ER 18:08
DX: S93.401A Sprain of unspecified ligament of right ankle, initial encounter (principal); F17.210 Nicotine dependence, cigarettes, uncomplicated; F12.90 Cannabis use, unspecified, uncomplicated; F10.90 Alcohol use, unspecified, uncomplicated; Z79.899 Other long term (current) drug therapy; Z90.49 Acquired absence of other specified parts of digestive tract; X50.9XXA Other and unspecified overexertion or strenuous movements or postures, initial encounter; Y93.89 Activity, other specified; Y92.89 Other specified places as the place of occurrence of the external cause; Y99.8 Other external cause status; Y90.9 Presence of alcohol in blood, level not specified
CPT/HCPCS: 73610

== ENCOUNTER 2025-02-15 16:39 | Emergency (ER) | payer MEDICAID ==
[~2025-02-15] VITALS: Ht 162.6 cm; Wt 64.5 kg
[~2025-02-15 16:39] MED LIST changes: +IBUP-1456 PO
[2025-02-15 17:12] LABS: Urine Bacteria None Seen /hpf (None Seen)
[2025-02-15 17:23] LABS: Urine Blood Negative /uL (Negative); Urine Clarity Clear (Clear); Urine Color Yellow (Yellow); Urine Mucus FEW (None Seen); Urine Protein, UAD TRACE (Negative); Urine Specific Gravity 1.031 (1.001-1.035); Urine Squamous Epithelial Cell None Seen /hpf (<5); Urine Urobilinogen Normal (Negative); Urine WBC 12 /HPF (0-3); Urine pH 5.5 (5.0-9.0)
--- NOTE | 2025-02-15 18:30 | ED.PDOC ---
General HPI Comments 24y M who presents to the ED for chief complaint of penile pain. Pt states he has been having penile pain during intercourse for the past 2 days with noted swelling and skin abrasions. Pt states he tried applying Aquaphor but states it has not helped so he came to the ED for further evaluation. Pt in the ED, otherwise has dysuria but denies any associated fever, chills, or other symptoms but has noted swelling. Pt denies any past history of STD and states he been having intercourse without protection. Pt otherwise denies any other symptoms at this time. Chief Complaint: Penile Problem Time Seen by MD: 16:53 Primary Care Provider: UNKNOWN Reviewed notes: Medications, Allergies Allergies: Coded Allergies: NO KNOWN ALLERGIES (Unverified , 11/03/21) Home Meds Active Scripts Ibuprofen (Ibuprofen) 800 Mg Tab, 1 TAB PO TID PRN, #30 TAB 0 Refills Prov:ARIADNE MCCABE 02/09/25 Cephalexin (KEFLEX CAPSULE) 250 Mg Cp, 2 CAP PO BID for 5 Days, #20 CAP Prov:MURILLONICOLE Lee Mayte RIBEIRO 09/30/24 Docusate Sodium (Colace) 100 Mg Cap, 1 CAP PO BID for 5 Days, #10 CAP Prov:MURILLONICOLE Lee Mayte RIBEIRO 09/30/24 Naproxen (NAPROSYN TABLET) 500 Mg Tb, 1 TAB PO BID for 15 Days, #30 TAB 1 Refill Prov:NICOLE MURILLO Mayte RIBEIRO 09/30/24 Information Source: Patient Mode of Arrival: Ambulatory Past Medical History PAST MEDICAL HISTORY: Denies Surgical History: Appendectomy Family History Family History: Unknown Social History Smoker: Cigarettes, Less Than 1 Pack/Day Alcohol: Occasionally Drugs: Marijuana Lives In: Home Constitutional: denies: chills, diaphoresis, fatigue, fever, malaise, sweats, weakness, others EENTM: denies: blurred vision, double vision, ear bleeding, ear discharge, ear drainage, ear pain, ear ringing, eye pain, eye redness, hearing loss, mouth pain, mouth swelling, nasal discharge, nose bleeding, nose congestion, nose pain, photophobia, tearing, throat pain, throat swelling, voice changes, others Respiratory: denies: cough, hemoptysis, orthopnea, SOB at rest, shortness of breath, SOB with excertion, stridor, wheezing, others Cardiovascular: denies: chest pain, dizzy spells, diaphoresis, Dyspnea on exertion, edema, irregular heart beat, left arm pain, lightheadedness, palpitations, PND, syncope, others Gastrointestinal: denies: abdomen distended, abdominal pain, blood streaked bowels, constipated, diarrhea, dysphagia, difficulty swallowing, hematemesis, melena, nausea, poor appetite, poor fluid intake, rectal bleeding, rectal pain, vomiting, others Genitourinary: reports: testicle pain, testicle swelling; denies: burning, dysuria, flank pain, frequency, hematuria, incontinence, penile discharge, penile sore, pain, urgency, others Neurological: denies: dizziness, fainting, headache, left sided numbness, left sided weakness, numbness, paresthesia, pre-existing deficit, right sided numbness, right sided weakness, seizure, speech problems, tingling, tremors, weakness, others Musculoskeletal: denies: back pain, gout, joint pain, joint swelling, muscle pain, muscle stiffness, neck pain, others Integumetry: denies: bruises, change in color, change in hair/nails, dryness, laceration, lesions, lumps, rash, wounds, others Allergic/Immunocompromised: denies: Difficulty Healing, Frequent Infections, H justin, Itching, others Hematologic/Lymphatic: denies: anemia, blood clots, easy bleeding, easy bruising, swollen glands, others Endocrine: denies: excessive hunger, excessive sweating, excessive thirst, excessive urination, flushing, intolerance to cold, intolerance to heat, unexplained weight gain, unexplained weight loss, others Psychiatric: denies: anxiety, bipolar disorder, depression, hopeless, panic disorder, schizophrenia, sleepless, suicidal, others All Other Systems: Reviewed and Negative Physical Exam General Appearance: No Apparent Distress, Normal HEENT: Normal ENT Inspection, Pharynx Normal, TMs Normal Neck: Full Range of Motion, Non-Tender, Normal, Normal Inspection Respiratory: Chest Non-Tender, Lungs Clear, No Accessory Muscle Use, No Respiratory Distress, Normal Breath Sounds Cardiovascular: No Edema, No JVD, No Murmur, No Gallop, Normal Peripheral Pulses, Regular Rate/Rhythm Breast Exam: Deferred Gastrointestinal: No Organomegaly, Non Tender, No Pulsatile Mass, Normal Bowel Sounds, Soft Genitalia: Penis (swelling, redness) Pelvic: Deferred Rectal: Deferred Extremities: No calf tenderness, Normal capillary refill, Normal inspection, Normal range of motion, Non-tender, No pedal edema Musculoskeletal : Apperance: Normal Neurologic: Alert, battery container tester II-XII nml as Tested, No Motor Deficits, Normal Affect, Normal Mood, No Sensory Deficits Cerebellar Function: Normal Reflexes: Normal Skin: Dry, Normal Color, Warm Lymphatic: No Adenopathy Was a procedure done? Was a procedure done?: No Differential Diagnosis Kidney stone (Female): N/A Penile/Scrotal: Epidiymitis, Prostatitis, STD, UTI Urinary Problem (Male): N/A Urinary Problem (Female): N/A X-Ray, Labs, Meds, VS Vital Signs Date Time Temp Pulse Resp B/P (MAP) Pulse Ox O2 Delivery O2 Flow Rate FiO2 02/15/25 16:53 98.0 89 17 143/93 (110) 96 98.0 Lab Test 02/15/25 17:10 Range/Units Urine Color Yellow Yellow Urine Clarity Clear Clear Urine pH 5.5 5.0-9.0 Urine Specific [place] 1.031 1.001-1.035 Urine Protein Trace H Negative Urine Ketones 1+ H Negative Urine Blood Negative Negative /uL Urine Nitrite Negative Negative Urine Bilirubin Negative Negative Urine Urobilinogen Normal Negative mg/dL Urine Leukocyte Esterase 2+ Negative /uL Urine RBC 3 0 - 3 /hpf Urine Microscopic WBC 12 H 0-3 /HPF Urine Squamous Epithelial Cells None seen <5 /hpf Urine Bacteria None seen None Seen /hpf Urine Mucus Few None Seen Urine Glucose Normal Normal mg/dL Chlamydia trachomatis (FLORIDALMA) Pending Neisseria gonorrhoeae (FLORIDALMA) Pending Time of 1ST Reevaluation: 18:50 Reevaluation 1ST: Improved Patient Education/Counseling: Diagnosis, Treatment Family Education/Counseling: No Family Present SEPSIS Sepsis Screen Date sepsis recognized/suspect: Feb 15, 2025 Time Sepsis recognized/suspect: 1638 Recent Procedure: No On Antibiotic Therapy: No Respiratory Rate >20: No Heart Rate >90: No Temp<36 C (96.8 F) or >38.3 C: No SBP <90 or MAP <65 mmHG: No New Acute Mental Status Change: No Is the patient on CPAP, BIPAP,: No Physician Orders Chlamydia/Gc Amplification (02/15/25 17:00) Vital Signs Date Time Temp Pulse Resp B/P (MAP) Pulse Ox O2 Delivery O2 Flow Rate FiO2 02/15/25 16:53 98.0 89 17 143/93 (110) 96 98.0 Departure 1 Departure Time of Disposition: 18:50 (Likely has herpes. We will discharge patient home with antivirals and out abundance of caution antibiotics as well.) Impression: Primary Impression: Penile pain Disposition: HOME / SELF CARE / HOMELESS Condition: Stable Additional Instructions: You may have herpes. You were prescribed medication please take as directed. For pain you can take the followinam: Ibuprofen 400mg with food Noon: Acetaminophen 1000mg 4pm: Ibuprofen 400mg with food 8pm: Acetaminophen 1000mg You should follow up with your regular doctor within one week to ensure you are doing better. If your symptoms worsen or you have any other concerns then please return to the ER. e-Prescriptions Doxycycline Hyclate (DOXYCYCLINE HYCLATE) 100 Mg Tab 1 TAB PO BID for 7 Days, #14 TAB Prov: FUENTES LAURENT MD 02/15/25 Valacyclovir Hcl (Valtrex) 1 Gm Tab 1 TAB PO BID for 10 Days, #20 TAB Prov: FUENTES LAURENT MD 02/15/25 Discharged With: Self Critical Care Note Critical Care Time?: No Stability Stability form required: No Heart Score Heart Score: Heart Score Response (Comments) Value History N/A 0 EKG N/A 0 Age N/A 0 Risk Factors N/A 0 Troponin N/A 0 Total 0 I personally scribed for FUENTES LAURENT MD ([email or web address]) on 02/15/25 at 18:30. Electronically submitted by Kendra Schuster ([email or web address]). FUENTES LAURENT MD Feb 15, 2025 18:30
[2025-02-15] MEDS ORDERED: cefTRIAXone SOD 1,000 MG VL IM ONE (18:45)
[2025-02-15] MEDS ORDERED: DOXYCYCLINE 100 MG TAB/CAP PO ONE (18:45)
[2025-02-15] MEDS ORDERED: KETOROLAC TROMETH 30 MG/ML 1ML VIAL IM ONE (18:45)
[2025-02-15] MEDS ORDERED: ACYCLOVIR 400 MG TAB PO ONE (18:45)
[2025-02-15] MEDS ORDERED: VALA1TAB PO (18:57)
[2025-02-15] MEDS ORDERED: DOXY-286 PO (18:57)
[2025-02-15 19:06] VITALS: BP 134/85; PULSE 63; RESP 20; TEMP 97.5; O2SAT 99
[2025-02-18 04:06] LABS: Chlamydia Trachomatis, NAA Negative (Negative); Neisseria gonorrhoeae, NAA Negative (Negative)
== END 2025-02-15 19:18 | disposition home or self-care (01) ==
LOC: ER 16:39
DX: N48.89 Other specified disorders of penis (principal); F17.210 Nicotine dependence, cigarettes, uncomplicated; Z90.49 Acquired absence of other specified parts of digestive tract
CPT/HCPCS: 81001

== ENCOUNTER 2025-02-23 07:58 | Emergency (ER) | payer MEDICAID ==
[~2025-02-23] VITALS: Ht 162.6 cm; Wt 69.2 kg
[~2025-02-23 07:58] MED LIST changes: +DOXY-286 PO; +VALA1TAB PO
--- NOTE | 2025-02-23 08:38 | ED.PDOC ---
General HPI Comments 24 year old male presents to the ED for the c/c of Penile Pain, Swelling with associated Dysuria. Pt states that he was previously seen here at [facility] on 02/15/25 for the same c/c and was prescribed Doxycycline w/ no improvement. Pt was Dx with a UTI, and GC was noted to be Negative. Pt states that his symptoms started 1x week ago ago and experiences pain when drawing back his foreskin. No other associated modifies or symptoms at this time. Chief Complaint: Penile Problem Time Seen by MD: 08:31 Primary Care Provider: ld Reviewed notes: Nurses Notes, Medications, Allergies Allergies: Coded Allergies: NO KNOWN ALLERGIES (Unverified , 11/03/21) Home Meds Active Scripts Clotrimazole W/ Betamethasone (Clotrimazole/Betamethason 1-0.05 %) 1 Cre Cre, 1 APPLIC EX DAILY for 5 Days, #15 GRAMS 0 Refills Prov:FRANSICO TROTTER PENOLOGY PROFESSOR 02/23/25 Doxycycline Hyclate (DOXYCYCLINE HYCLATE) 100 Mg Tab, 1 TAB PO BID for 7 Days, #14 TAB Prov:FUENTES LAURENT MD 02/15/25 Valacyclovir Hcl (Valtrex) 1 Gm Tab, 1 TAB PO BID for 10 Days, #20 TAB Prov:FUENTES LAURENT MD 02/15/25 Ibuprofen (Ibuprofen) 800 Mg Tab, 1 TAB PO TID PRN, #30 TAB 0 Refills Prov:ARIADNE MCCABE 02/09/25 Cephalexin (KEFLEX CAPSULE) 250 Mg Cp, 2 CAP PO BID for 5 Days, #20 CAP Prov:NICOLE MURILLO DO 09/30/24 Docusate Sodium (Colace) 100 Mg Cap, 1 CAP PO BID for 5 Days, #10 CAP Prov:NICOLE MURILLO DO 09/30/24 Naproxen (NAPROSYN TABLET) 500 Mg Tb, 1 TAB PO BID for 15 Days, #30 TAB 1 Refill Prov:NICOLE MURILLO DO 09/30/24 Information Source: Patient Mode of Arrival: Ambulatory Severity: Moderate Timing: Weeks Duration: Since onset Has not urinated for: Hours Prehospital treatment: None Onset: Spontaneous Symptoms: Dysuria History of: None Location: None Location male: Other Penile discharge: None Modifying factors: None associated signs and symptoms: None Past Medical History PAST MEDICAL HISTORY: Denies Surgical History: Appendectomy Family History Family History: Unknown Social History Smoker: Cigarettes, Less Than 1 Pack/Day Alcohol: Occasionally Drugs: Marijuana Lives In: Home Constitutional: denies: chills, diaphoresis, fatigue, fever, malaise, sweats, weakness, others EENTM: denies: blurred vision, double vision, ear bleeding, ear discharge, ear drainage, ear pain, ear ringing, eye pain, eye redness, hearing loss, mouth pain, mouth swelling, nasal discharge, nose bleeding, nose congestion, nose pain, photophobia, tearing, throat pain, throat swelling, voice changes, others Respiratory: denies: cough, hemoptysis, orthopnea, SOB at rest, shortness of breath, SOB with excertion, stridor, wheezing, others Cardiovascular: denies: chest pain, dizzy spells, diaphoresis, Dyspnea on exertion, edema, irregular heart beat, left arm pain, lightheadedness, palpitations, PND, syncope, others Gastrointestinal: denies: abdomen distended, abdominal pain, blood streaked bowels, constipated, diarrhea, dysphagia, difficulty swallowing, hematemesis, melena, nausea, poor appetite, poor fluid intake, rectal bleeding, rectal pain, vomiting, others Genitourinary: denies: burning, dysuria, flank pain, frequency, hematuria, incontinence, penile discharge, penile sore, pain, testicle pain, testicle swelling, urgency, others Neurological: denies: dizziness, fainting, headache, left sided numbness, left sided weakness, numbness, paresthesia, pre-existing deficit, right sided numbness, right sided weakness, seizure, speech problems, tingling, tremors, weakness, others Musculoskeletal: denies: back pain, gout, joint pain, joint swelling, muscle pain, muscle stiffness, neck pain, others Integumetry: denies: bruises, change in color, change in hair/nails, dryness, laceration, lesions, lumps, rash, wounds, others Allergic/Immunocompromised: denies: Difficulty Healing, Frequent Infections, Hives, Itching, others Hematologic/Lymphatic: denies: anemia, blood clots, easy bleeding, easy bruising, swollen glands, others Endocrine: denies: excessive hunger, excessive sweating, excessive thirst, excessive urination, flushing, intolerance to cold, intolerance to heat, unexplained weight gain, unexplained weight loss, others Psychiatric: denies: anxiety, bipolar disorder, depression, hopeless, panic disorder, schizophrenia, sleepless, suicidal, others All Other Systems: Reviewed and Negative Physical Exam General Appearance: No Apparent Distress, Normal HEENT: Normal ENT Inspection, Pharynx Normal, TMs Normal Neck: Full Range of Motion, Non-Tender, Normal, Normal Inspection Respiratory: Chest Non-Tender, Lungs Clear, No Accessory Muscle Use, No Resp iratory Distress, Normal Breath Sounds Cardiovascular: No Murmur, No Gallop, Regular Rate/Rhythm Breast Exam: Deferred Gastrointestinal: No Organomegaly, Non Tender, No Pulsatile Mass, Normal Bowel Sounds, Soft Genitalia: Penis (mild to moderate imflamation, irritation, white thin layer throughout the penile shaft, no discharge, no masses, no open wounds, no TTP, Testicles are normals, no high riding Testie) Pelvic: Deferred Rectal: Deferred Extremities: No calf tenderness, Normal capillary refill, Normal inspection, Normal range of motion, Non-tender, No pedal edema Musculoskeletal : Apperance: Normal Neurologic: Alert, No Motor Deficits, Normal Affect, Normal Mood, No Sensory Deficits Cerebellar Function: Normal Reflexes: Normal Skin: Dry, Normal Color, Warm Lymphatic: No Adenopathy Was a procedure done? Was a procedure done?: No Differential Diagnosis Kidney stone (Female): Other Penile/Scrotal: Epidiymitis, Foreign Body, Prostatitis, STD, UTI, Phimosis, Hydrocele, Testicular Torsion, Urolithiasis, Urinary Retention Urinary Problem (Male): Bladder Outlet, Bladder Obstruction, Epididymitis, Prostatitis, Plelonephritis, Urethritis, Urolithiasis X-Ray, Labs, Meds, VS Vital Signs Date Time Temp Pulse Resp B/P (MAP) Pulse Ox O2 Delivery O2 Flow Rate FiO2 02/23/25 09:15 62 18 100 Room Air 02/23/25 09:15 98.1 62 18 113/59 (77) 100 98.1 02/23/25 08:07 98.3 72 18 132/78 (96) 98 98.3 X-Ray, Labs, Meds, VS Comment 24 year old male presents to the ED for the c/c of Penile Pain and Swelling. Patient arrives alert and oriented, ABC's intact, afebrile, vital signs stable, saturating well in room air Glans and foreskin are swollen, tender, and edematous consistent with balanopsthitis. No evidence of phimosis, paraphimosis, severe penile or life threatening infection, vascular compromise, or apparent STD. Rx: applied topically to glans q12hrs until resolution Disposition: Discharge to follow up with primary care doctor within next week for reassessment. Instructed regarding home hygiene and sitz baths while inflamed. Strict return precautions discussed. Patient is stable for discharge at this time. External notes reviewed. Test results and diagnostic imaging interpreted. All diagnostic findings, discharge care, education and instructions provided Follow-up with PCP in 2 to 3 days Patient verbalized understanding and agreed to treatment plan Vital signs stable, afebrile, no acute distress noted Patient ambulatory with strong steady gait Advised to return precautions for any new or worsening symptoms, return to ER immediately for re-evaluation Patient is aware that the purpose of this visit was for an acute medical emergency requiring emergent stabilization. Chronic conditions, including malignancies have not been ruled out. Patient is instructed to follow up with PCP as directed and discharge instructions for continued care and workup. If unable to arrange follow-up, patient is to return to the emergency department for reassessment. Patient (parent or legal guardian if applicable) was given verbal and written discharge instructions and acknowledges understanding. Time of 1ST Reevaluation: 09:02 Reevaluation 1ST: Improved Patient Education/Counseling: Diagnosis, Treatment Family Education/Counseling: No Family Present SEPSIS Sepsis Screen Date sepsis recognized/suspect: Feb 23, 2025 Time Sepsis recognized/suspect: 799 Recent Procedure: No On Antibiotic Therapy: Yes Respiratory Rate >20: No Heart Rate >90: No Temp<36 C (96.8 F) or >38.3 C: No SBP <90 or MAP <65 mmHG: No New Acute Mental Status Change: No Is the patient on CPAP, BIPAP,: No Vital Signs Date Time Temp Pulse Resp B/P (MAP) Pulse Ox O2 Delivery O2 Flow Rate FiO2 02/23/25 09:15 62 18 100 Room Air 02/23/25 09:15 98.1 62 18 113/59 (77) 100 98.1 02/23/25 08:07 98.3 72 18 132/78 (96) 98 98.3 Departure 1 Departure Time of Disposition: 09:04 Impression: Primary Impression: Balanoposthitis Disposition: 01 HOME / SELF CARE / HOMELESS Condition: Stable e-Prescriptions Clotrimazole W/ Betamethasone (Clotrimazole/Betamethason 1-0.05 %) 1 Cre Cre 1 APPLIC EX DAILY for 5 Days, #15 GRAMS 0 Refills Prov: FRANSICO TROTTER NP 02/23/25 Critical Care Note Critical Care Time?: No Stability Stability form required: No Heart Score Heart Score: Heart Score Response (Comments) Value History N/A 0 EKG N/A 0 Age N/A 0 Risk Factors N/A 0 Troponin N/A 0 Total 0 I personally scribed for FRANSICO TROTTER NP ([email or web address]) on 02/23/25 at 08:38. Electronically submitted by William Alfaro (Clinical Data). I personally scribed for FRANSICO TROTTER NP (DAYDAY) on 02/23/25 at 08:53. Electronically submitted by William Alfaro (Clinical Data). I personally scribed for FRANSICO TROTTER NP ([email or web address]) on 02/23/25 at 09:09. Electronically submitted by William Alfaro (Clinical Data). FRANSICO TROTTER NP Feb 23, 2025 08:38
[2025-02-23] MEDS ORDERED: CLOTCRE3 EX (09:04)
[2025-02-23 09:15] VITALS: BP 113/59; PULSE 62; RESP 18; TEMP 98.1; O2SAT 100
== END 2025-02-23 09:16 | disposition home or self-care (01) ==
LOC: ER 07:58
DX: N47.6 Balanoposthitis (principal); F17.210 Nicotine dependence, cigarettes, uncomplicated; F10.90 Alcohol use, unspecified, uncomplicated; F12.90 Cannabis use, unspecified, uncomplicated; Z90.49 Acquired absence of other specified parts of digestive tract; Z79.624 Long term (current) use of inhibitors of nucleotide synthesis; Z79.899 Other long term (current) drug therapy; Y90.9 Presence of alcohol in blood, level not specified